=== PATIENT | male | born 1955 | race Caucasian/White ===

== ENCOUNTER 2017-01-27 17:05 | Inpatient (IN) | payer SELFPAY ==
[2017-01-27] VITALS (16 sets, daily range): BP systolic 122–162; BP diastolic 73–101
[~2017-01-27] VITALS: Ht 185.4 cm; Wt 113.4 kg
[2017-01-27] MEDS ORDERED: IV NORMAL SALINE 1000ML BAG 1,000 ML IV SCH (17:21)
--- NOTE | 2017-01-27 17:25 | PHYS DOC ---
Past Medical History Past Medical History: No Pertinent History Past Surgical History: No Surgical History Additional Information: 0.5 TO 1 PPD Alcohol Use: Occasionally Drug Use: None Adult General Chief Complaint Chief Complaint: CHEST PAIN HPI HPI Patient is a 61 year old male who presents with complaint of chest pain that started approximate one hour prior to arrival. Patient states that he was working on drywall when symptoms started. Patient denies any previous history of similar symptoms. Patient states that he started getting short of breath, nauseous, and diaphoretic with onset of symptoms. Patient states that the pain feels dull and achy. Patient states it radiates into his back in the left side of his jaw. Patient also had associated numbness in his left arm. Patient denies any known past medical history and does not currently follow with a primary physician. The patient does have family history of myocardial infarction , stating his brother 2 years ago of a heart attack. Patient rates pain currently as 2 out of 10. She has not taken any medications to help with symptoms since onset. Review of Systems Review of Systems Constitutional: Diaphoresis, Denies fever or chills [] Eyes: Denies change in visual acuity, redness, or eye pain [] HENT: Denies nasal congestion or sore throat [] Respiratory: Denies cough or shortness of breath [] Cardiovascular: Chest pain, denies edema [] GI: Denies abdominal pain, nausea, vomiting, bloody stools or diarrhea [] : Denies dysuria or hematuria [] Musculoskeletal: Denies back pain or joint pain [] Integument: Denies rash or skin lesions [] Neurologic: Denies headache, focal weakness or sensory changes [] Current Medications Current Medications Current Medications Medications (Trade) Dose Ordered Sig/[facility] Start Time Stop Time Status Last Admin Dose Admin Aspirin (Children'S Aspirin) 324 mg 1X ONCE 01/27/17 17:30 01/27/17 17:31 DC 01/27/17 17:29 324 MG Bivalirudin (Angiomax) 250 mg STK-MED ONCE 01/27/17 17:57 01/27/17 17:58 DC Fentanyl Citrate (Fentanyl 2ml Vial) 100 mcg STK-MED ONCE 01/27/17 17:56 01/27/17 17:57 DC Fentanyl Citrate 50 mcg 50 mcg PRN Q2HR PRN 01/27/17 17:30 01/28/17 17:29 Heparin Sodium (Porcine) 4000 unit 4,000 unit 1X ONCE 01/27/17 17:30 01/27/17 17:31 DC 01/27/17 17:30 4,000 UNIT Heparin Sodium/ Sodium Chloride 500 ml @ As Directed STK-MED ONCE 01/27/17 17:41 01/27/17 17:42 DC Iohexol (Omnipaque 300 Mg/ml) 100 ml STK-MED ONCE 01/27/17 17:42 01/27/17 17:43 DC Lidocaine HCl 20 ml STK-MED ONCE 01/27/17 17:41 01/27/17 17:42 DC Midazolam HCl (Versed) 2 mg STK-MED ONCE 01/27/17 17:56 01/27/17 17:57 DC Ondansetron HCl (Zofran) 4 mg PRN Q8HRS PRN 01/27/17 17:30 01/28/17 17:29 Sodium Chloride (Iv Sodium Chloride 0.9% 1000ml Bag) 1,000 ml @ 1,000 mls/hr Q1H 01/27/17 17:21 01/27/17 18:20 01/27/17 17:31 1,000 MLS/HR Allergies Allergies Allergies Coded Allergies Type Severity Reaction Last Updated Verified Penicillins Allergy Unknown 01/27/17 Yes Physical Exam Physical Exam Constitutional: Alert, afebrile, diaphoretic, appears acutely ill. [] HENT: Normocephalic, atraumatic, bilateral external ears normal, oropharynx moist, no oral exudates, nose normal. [] Eyes: PERRLA, EOMI, conjunctiva normal, no discharge. [] Neck: Normal range of motion, no tenderness, supple, no stridor. [] Cardiovascular:Heart rate regular rhythm, no murmur [] Lungs & Thorax: Bilateral breath sounds clear to auscultation [] Abdomen: Bowel sounds normal, soft, no tenderness, no masses, no pulsatile masses. [] Skin: Pale, diaphoretic, no erythema, no rash. [] Back: No tenderness, no CVA tenderness. [] Extremities: No tenderness, no cyanosis, no clubbing, ROM intact, no edema. [] Neurologic: Alert and oriented X 3, normal motor function, normal sensory function, no focal deficits noted. [] Current Patient Data Vital Signs Vital Signs Date Time Temp Pulse Resp B/P Pulse Ox O2 Delivery O2 Flow Rate FiO2 01/27/17 17:30 92 19 124/82 94 Room Air Lab Values Laboratory Tests Test 01/27/17 17:18 01/27/17 17:24 01/27/17 17:30 White Blood Count 18.1x10^3/uL (4.0-11.0) H Red Blood Count 5.15x10^6/uL (4.30-5.70) Hemoglobin 16.0g/dL (13.0-17.5) Hematocrit 49.4% (39.0-53.0) Mean Corpuscular Volume 96fL (79-100) Mean Corpuscular Hemoglobin 31pg (25-35) Mean Corpuscular Hemoglobin Concent 32g/dL (31-37) Red Cell Distribution Width 14.5% (11.5-14.5) Platelet Count 299x10^3/uL (140-400) Neutrophils (%) (Auto) 67% (31-73) Lymphocytes (%) (Auto) 21% (24-48) L Monocytes (%) (Auto) 10% (0-9) H Eosinophils (%) (Auto) 1% (0-3) Basophils (%) (Auto) 1% (0-3) Neutrophils # (Auto) 12.1x10^3uL (1.8-7.7) H Lymphocytes # (Auto) 3.9x10^3/uL (1.0-4.8) Monocytes # (Auto) 1.8x10^3/uL (0.0-1.1) H Eosinophils # (Auto) 0.2x10^3/uL (0.0-0.7) Basophils # (Auto) 0.1x10^3/uL (0.0-0.2) Sodium Level 145mmol/L (136-145) Potassium Level 4.2mmol/L (3.5-5.1) Chloride Level 107mmol/L (98-107) Carbon Dioxide Level 25mmol/L (21-32) Anion Gap 13 (6-14) 20mmol/L (6-14) H Blood Urea Nitrogen 26mg/dL (8-26) Creatinine 1.5mg/dL (0.7-1.3) H Estimated GFR (Cockcroft-Gault) 47.6 Glucose Level 143mg/dL (70-99) H 138mg/dL (70-99) H Calcium Level 9.6mg/dL (8.5-10.1) Magnesium Level Pending Total Bilirubin Pending Direct Bilirubin Pending Aspartate Amino Transferase (AST) Pending Alanine Aminotransferase (ALT) Pending Alkaline Phosphatase Pending Total Protein Pending Albumin Pending POC Troponin I 0.00ng/ml (<0.08) POC Hemoglobin 17.0g/dL (14-18) POC Hematocrit 50% (37-52) POC Sodium 143mmol/L (135-145) POC Potassium 4.1mmol/L (3.5-5.0) POC Chloride 106mmol/L (98-110) POC Total CO2 21mmol/L (23-32) L POC Blood Urea Nitrogen 27mg/dL (8-26) H POC Creatinine 1.4mg/dL (0.5-1.4) POC Ionized Calcium (Kerwin) 1.13mmol/L (1.13-1.32) Laboratory Tests 01/27/17 17:18 Laboratory Tests 01/27/17 17:18 01/27/17 17:30 EKG EKG Interpreted by me: Heart rate 79, sinus rhythm, normal intervals, leftward axis , ST elevations in the inferior leads, lateral leads, and in V4 through V6 with reciprocal depressions in V1 through V3 consistent with acute myocardial infarction. [] Radiology/Procedures Radiology/Procedures One view AP chest x-ray interpreted by me: No infiltrate, no effusions, normal cardiac silhouette [] Course & Med Decision Making Course & Med Decision Making Pertinent Labs and Imaging studies reviewed. (See chart for details) Patient's EKG showed evidence of acute STEMI. At 1718 code STEMI was paged out to the glassware maker and cardiac catheterization team. The patient was given 324 mg of oral aspirin and 4000 units of IV heparin. I spoke with Dr. Sarah at 1725. He agreed to come emergently to the emergency department to evaluate the patient for likely transfer to cardiac catheterization lab for acute PCAI. Spoke with patient and patient's family regarding plan of care and they're in agreement at this time. Patient was transferred in critical but stable condition to the cardiac catheterization lab. Patient met of to Dr. Douglass. Ck Disclaimer Ck Disclaimer This electronic medical record was generated, in whole or in part, using a voice recognition dictation system. Departure Departure Impression: Primary Impression: STEMI (ST elevation myocardial infarction) Disposition: ADMITTED INPATIENT Admitting Physician: Diana Douglass Condition: CRITICAL Problem Qualifiers Primary Impression: STEMI (ST elevation myocardial infarction) Involved coronary artery: unspecified coronary artery Qualified Code: I21.3 - ST elevation (STEMI) myocardial infarction of unspecified site KAYLIN RUSSELL MD Jan 27, 2017 17:25
[2017-01-27] MEDS ORDERED: FENTANYL PF 100 MCG/2 ML VIAL. IV PRN ×2 (17:30)
[2017-01-27] MEDS ORDERED: HEPARIN for IV BOLUS 10,000 UNIT/10 ML VIAL. IV ONE (17:30)
[2017-01-27] MEDS ORDERED: ASPIRIN 81 MG TAB.CHEW PO ONE (17:30)
[2017-01-27] MEDS ORDERED: ONDANSETRON PF 4 MG/2 ML VIAL. IV PRN (17:30)
[2017-01-27 17:33] LABS: POTASSIUM ISTAT 4.1 mmol/L (3.5-5.0)
--- NOTE | 2017-01-27 17:34 | EKG ---
[facility] [address] [place] [address] Test Date: 2017-01-27 Test Time: 17:15:09 Pat Name: ROSIE GLYNN Department: Room: Gender: M Construction Representative: : 1955 Requested By: KAYLIN RUSSELL Order Number: [id number] Reading MD: Measurements Intervals Addison Rate: 79 P: 39 CA: 156 QRS: -3 QRSD: 92 T: 52 QT: 346 QTc: 402 Interpretive Statements SINUS RHYTHM LEFTWARD AXIS ST & T ABNORMALITY, CONSIDER RECENT ANTEROLATERAL MYOCARDIAL OR PERICARDIAL DAMAGE ST-T ELEVATION, CONSIDER ACUTE INFERIOR INFARCT RI6.01 Unconfirmed report No previous ECG available for comparison
[2017-01-27] MEDS ORDERED: LIDOCAINE 2% 20 ML VIAL. ONE (17:41)
[2017-01-27] MEDS ORDERED: IOHEXOL 300 MG/ML 100ML VIAL. ONE (17:42)
[2017-01-27 17:45] LABS: BASO # 0.1 x10^3/uL (0.0-0.2); BASO % 1 % (0-3); EOS % 1 % (0-3); HEMATOCRIT 49.4 % (39.0-53.0); LYMPH # 3.9 x10^3/uL (1.0-4.8); LYMPH % 21 % (24-48); MEAN CORPUSCULAR HEMOGLOBIN 31 pg (25-35); MEAN CORPUSCULAR HGB CONC 32 g/dL (31-37); MEAN CORPUSCULAR VOLUME 96 fL (79-100); MONO % 10 % (0-9); NEUT % 67 % (31-73); PLATELET COUNT 299 x10^3/uL (140-400); RED BLOOD COUNT 5.15 x10^6/uL (4.30-5.70); RED CELL DISTRIBUTION WIDTH 14.5 % (11.5-14.5); WHITE BLOOD COUNT 18.1 x10^3/uL (4.0-11.0)
[2017-01-27] MEDS ORDERED: FENTANYL PF 100 MCG/2 ML VIAL. ONE (17:56)
[2017-01-27] MEDS ORDERED: MIDAZOLAM HCL 2 MG/2 ML VIAL. ONE (17:56)
[2017-01-27 17:57] LABS: CALCIUM 9.6 mg/dL (8.5-10.1); CREATININE 1.5 mg/dL (0.7-1.3); GFR 47.6; POTASSIUM 4.2 mmol/L (3.5-5.1)
[2017-01-27] MEDS ORDERED: BIVALIRUDIN 250 MG VIAL IV ONE ×2 (17:57→18:30)
[2017-01-27 18:02] LABS: ALBUMIN 3.7 g/dL (3.4-5.0); DIRECT BILIRUBIN 0.1 mg/dL (0.0-0.2); MAGNESIUM 2.1 mg/dL (1.8-2.4); TOTAL BILIRUBIN 0.3 mg/dL (0.2-1.0); TOTAL PROTEIN 7.9 g/dL (6.4-8.2)
[2017-01-27 18:10] LABS: CKMB INDEX 1.8 % (0-4); CKMB MASS 1.7 ng/mL (0.0-3.6)
[2017-01-27] MEDS ORDERED: CLOPIDOGREL BISULFATE 75 MG TABLET ONE (18:14)
[2017-01-27] MEDS ORDERED: IOHEXOL 300 MG/ML 100ML VIAL. IART ONE (18:15)
[2017-01-27] MEDS ORDERED: LIDOCAINE 2% 20 ML VIAL. IJ ONE (18:15)
[2017-01-27] MEDS ORDERED: FENTANYL PF 100 MCG/2 ML VIAL. IV ONE (18:15)
[2017-01-27] MEDS ORDERED: MIDAZOLAM HCL 2 MG/2 ML VIAL. IV ONE (18:15)
[2017-01-27] MEDS ORDERED: CLOPIDOGREL BISULFATE 75 MG TABLET PO ONE (18:15)
--- NOTE | 2017-01-27 18:34 | PDOC ---
MODERATE SEDATION ASSESSMENT RISKS/ALTERNATIVES Risks/Alternatives Risks and alternatives of this type of sedation and procedure discussed with: RISK/ALTERNATIVES: Patient H & P ON CHART H & P H & P on chart and reviewed for co-morbid conditions and appropriate labs. H&P ON CHART: Yes STATUS PREG STATUS ASSESSED: N/A MEDS/ALLERGIES REVIEWED Meds/Allergies Reviewed Medications and Allergies including time and route of recently administered narcotics and sedatives. MEDS/ALLERGIES REVIEWED: Yes ASA RATING ASA RATING: II AIRWAY ASSESSMENT Airway Assessment Airway patency, oral function limitations, presence of caps, crowns, dentures, partials, and ability to extend neck assessed. AIRWAY ASSESSMENT: Yes MALLAMPATI SCORE MALLAMPATI SCORE: II PRE-SEDATION ASSESSMENT PRE-SEDATION ASSESSMENT: Yes NIKITA MARQUEZ MD Jan 27, 2017 18:34
--- NOTE | 2017-01-27 18:41 | PDOC2 ---
CONSULT Date of Consult Date of Consult DATE: 01/27/17 TIME: 18:41 Reason for Consult Reason for Consult: Acute myocardial infarction Referring Physician Referring Physician: Dr. Pena Identification/Chief Complaint Chief Complaint Chest pain Source Source: Chart review, Patient History of Present Illness Reason for Visit: 61 y/o male without any known previous cardiac history presented with retrosternal chest pressure associated with diaphoresis started one all prior to presentation. He also had mild dyspnea but denied any orthopnea/PND, palpitations or syncope. Past Medical History Cardiovascular: No pertinent hx Past Surgical History Past Surgical History: No pertinent history Family History Family History Positive for premature coronary disease Social History Social History Patient smokes half to one pack cigarettes daily but denied any drug abuse Current Problem List Problem List Problems Medical Problems: (1) Acute DC Status: Acute (2) STEMI (ST elevation myocardial infarction) Status: Acute Current Medications Current Medications Current Medications Aspirin (Children'S Aspirin) 324 mg 1X ONCE PO Last administered on 01/27/17 17:29; Start 01/27/17 at 17:30; Stop 01/27/17 at 17:31; Status DC Heparin Sodium (Porcine) 4,000 unit 1X ONCE IV Last administered on 01/27/17 17:30; Start 01/27/17 at 17:30; Stop 01/27/17 at 17:31; Status DC Fentanyl Citrate 50 mcg 50 mcg PRN Q15MIN PRN IV PAIN GREATER THAN 3/10; Start 01/27/17 at 17:30; Stop 01/28/17 at 17:29 Sodium Chloride (Iv Sodium Chloride 0.9% 1000ml Bag) 1,000 ml @ 1,000 mls/hr Q1H IV Last administered on 01/27/17 17:31; Start 01/27/17 at 17:21; Stop at 18:20; Status DC Ondansetron HCl (Zofran) 4 mg PRN Q8HRS PRN IV NAUSEA/VOMITING; Start 01/27/17 at 17:30; Stop 01/28/17 at 17:29 Fentanyl Citrate 50 mcg 50 mcg PRN Q2HR PRN IV PAIN; Start 01/27/17 at 17:30; Stop 01/28/17 at 17:29 Heparin Sodium/ Sodium Chloride 500 ml @ As Directed STK-MED ONCE .ROUTE ; Start 01/27/17 at 17:41; Stop 01/27/17 at 17:42; Status DC Lidocaine HCl 20 ml STK-MED ONCE .ROUTE ; Start 01/27/17 at 17:41; Stop 01/27/17 at 17:42; Status DC Iohexol (Omnipaque 300 Mg/ml) 100 ml STK-MED ONCE .ROUTE ; Start 01/27/17 at 17: 42; Stop 01/27/17 at 17:43; Status DC Fentanyl Citrate (Fentanyl 2ml Vial) 100 mcg STK-MED ONCE .ROUTE ; Start at 17:56; Stop 01/27/17 at 17:57; Status DC Midazolam HCl (Versed) 2 mg STK-MED ONCE .ROUTE ; Start 01/27/17 at 17:56; Stop 01/27/17 at 17:57; Status DC Bivalirudin (Angiomax) 250 mg STK-MED ONCE IV ; Start 01/27/17 at 17:57; Stop 01/27/17 at 17:58; Status DC Heparin Sodium/ Sodium Chloride 1,000 unit 1X ONCE IART Last administered on 18:29; Start 01/27/17 at 18:15; Stop 01/27/17 at 18:18; Status DC Midazolam HCl (Versed) 2 mg 1X ONCE IV Last administered on 01/27/17 18:28; Start 01/27/17 at 18:15; Stop 01/27/17 at 18:18; Status DC Fentanyl Citrate (Fentanyl 2ml Vial) 100 mcg 1X ONCE IV Last administered on 18:28; Start 01/27/17 at 18:15; Stop 01/27/17 at 18:18; Status DC Iohexol (Omnipaque 300 Mg/ml) 100 ml 1X ONCE IART Last administered on 18:29; Start 01/27/17 at 18:15; Stop 01/27/17 at 18:18; Status DC Lidocaine HCl 20 ml 1X ONCE IJ Last administered on 01/27/17 18:27; Start 01/27 at 18:15; Stop 01/27/17 at 18:18; Status DC Clopidogrel Bisulfate (Plavix) 75 mg STK-MED ONCE .ROUTE ; Start 01/27/17 at 18: 14; Stop 01/27/17 at 18:15; Status DC Clopidogrel Bisulfate (Plavix) 600 mg 1X ONCE PO Last administered on t 18:27; Start 01/27/17 at 18:15; Stop 01/27/17 at 18:18; Status DC Bivalirudin (Angiomax) 250 mg 1X ONCE IV ; Start 01/27/17 at 18:30; Stop at 18:31; Status DC Allergies Allergies: Coded Allergies: Penicillins (Verified Allergy, Unknown, 01/27/17) ROS PSYCHOLOGICAL ROS: No: Hallucinations Eyes: No Loss of vision HEENT: No: Epistaxis Respiratory: YES: Shortness of breath Cardiovascular: yes Chest Pain Gastrointestinal: No Diarrhea, No Vomiting Genitourinary: No Hematuria Neurological: No Memory Loss, No Seizures Skin: No Rash Physical Exam General: Alert, Oriented X3 HEENT: Atraumatic, PERRLA Lungs: Clear to auscultation Heart: Regular rate Abdomen: Soft Extremities: No edema Psych/Mental Status: Mood NL Vitals VITALS Vital Signs Date Time Temp Pulse Resp B/P Pulse Ox O2 Delivery O2 Flow Rate FiO2 01/27/17 18:28 16 100 Nasal Cannula 2.0 01/27/17 17:40 92 134/88 Labs Labs Laboratory Tests Test 01/27/17 17:18 01/27/17 17:24 01/27/17 17:30 White Blood Count 18.1x10^3/uL (4.0-11.0) Red Blood Count 5.15x10^6/uL (4.30-5.70) Hemoglobin 16.0g/dL (13.0-17.5) Hematocrit 49.4% (39.0-53.0) Mean Corpuscular Volume 96fL (79-100) Mean Corpuscular Hemoglobin 31pg (25-35) Mean Corpuscular Hemoglobin Concent 32g/dL (31-37) Red Cell Distribution Width 14.5% (11.5-14.5) Platelet Count 299x10^3/uL (140-400) Neutrophils (%) (Auto) 67% (31-73) Lymphocytes (%) (Auto) 21% (24-48) Monocytes (%) (Auto) 10% (0-9) Eosinophils (%) (Auto) 1% (0-3) Basophils (%) (Auto) 1% (0-3) Neutrophils # (Auto) 12.1x10^3uL (1.8-7.7) Lymphocytes # (Auto) 3.9x10^3/uL (1.0-4.8) Monocytes # (Auto) 1.8x10^3/uL (0.0-1.1) Eosinophils # (Auto) 0.2x10^3/uL (0.0-0.7) Basophils # (Auto) 0.1x10^3/uL (0.0-0.2) Sodium Level 145mmol/L (136-145) Potassium Level 4.2mmol/L (3.5-5.1) Chloride Level 107mmol/L (98-107) Carbon Dioxide Level 25mmol/L (21-32) Anion Gap 13 (6-14) 20mmol/L (6-14) Blood Urea Nitrogen 26mg/dL (8-26) Creatinine 1.5mg/dL (0.7-1.3) Estimated GFR (Cockcroft-Gault) 47.6 Glucose Level 143mg/dL (70-99) 138mg/dL (70-99) Calcium Level 9.6mg/dL (8.5-10.1) Magnesium Level 2.1mg/dL (1.8-2.4) Total Bilirubin 0.3mg/dL (0.2-1.0) Direct Bilirubin 0.1mg/dL (0.0-0.2) Aspartate Amino Transf (AST/SGOT) 22U/L (15-37) Alanine Aminotransferase (ALT/SGPT) 27U/L (16-63) Alkaline Phosphatase 101U/L (46-116) Creatine Kinase 94U/L (39-308) Creatine Kinase MB (Mass) 1.7ng/mL (0.0-3.6) Creatine Kinase MB Relative Index 1.8% (0-4) Troponin I Quantitative < 0.017ng/mL (0.000-0.055) WR-Stn-D-Type Natriuretic Peptide 50pg/mL (0-124) Total Protein 7.9g/dL (6.4-8.2) Albumin 3.7g/dL (3.4-5.0) Bedside Troponin I 0.00ng/ml (<0.08) Bedside Hemoglobin 17.0g/dL (14-18) Bedside Hematocrit 50% (37-52) Bedside Sodium 143mmol/L (135-145) Bedside Potassium 4.1mmol/L (3.5-5.0) Bedside Chloride 106mmol/L (98-110) Bedside Total CO2 21mmol/L (23-32) Bedside Blood Urea Nitrogen 27mg/dL (8-26) Bedside Creatinine 1.4mg/dL (0.5-1.4) Bedside Ionized Calcium (Kerwin) 1.13mmol/L (1.13-1.32) Laboratory Tests Test 01/27/17 17:18 01/27/17 17:24 01/27/17 17:30 White Blood Count 18.1x10^3/uL (4.0-11.0) Red Blood Count 5.15x10^6/uL (4.30-5.70) Hemoglobin 16.0g/dL (13.0-17.5) Hematocrit 49.4% (39.0-53.0) Mean Corpuscular Volume 96fL (79-100) Mean Corpuscular Hemoglobin 31pg (25-35) Mean Corpuscular Hemoglobin Concent 32g/dL (31-37) Red Cell Distribution Width 14.5% (11.5-14.5) Platelet Count 299x10^3/uL (140-400) Neutrophils (%) (Auto) 67% (31-73) Lymphocytes (%) (Auto) 21% (24-48) Monocytes (%) (Auto) 10% (0-9) Eosinophils (%) (Auto) 1% (0-3) Basophils (%) (Auto) 1% (0-3) Neutrophils # (Auto) 12.1x10^3uL (1.8-7.7) Lymphocytes # (Auto) 3.9x10^3/uL (1.0-4.8) Monocytes # (Auto) 1.8x10^3/uL (0.0-1.1) Eosinophils # (Auto) 0.2x10^3/uL (0.0-0.7) Basophils # (Auto) 0.1x10^3/uL (0.0-0.2) Sodium Level 145mmol/L (136-145) Potassium Level 4.2mmol/L (3.5-5.1) Chloride Level 107mmol/L (98-107) Carbon Dioxide Level 25mmol/L (21-32) Anion Gap 13 (6-14) 20mmol/L (6-14) Blood Urea Nitrogen 26mg/dL (8-26) Creatinine 1.5mg/dL (0.7-1.3) Estimated GFR (Cockcroft-Gault) 47.6 Glucose Level 143mg/dL (70-99) 138mg/dL (70-99) Calcium Level 9.6mg/dL (8.5-10.1) Magnesium Level 2.1mg/dL (1.8-2.4) Total Bilirubin 0.3mg/dL (0.2-1.0) Direct Bilirubin 0.1mg/dL (0.0-0.2) Aspartate Amino Transf (AST/SGOT) 22U/L (15-37) Alanine Aminotransferase (ALT/SGPT) 27U/L (16-63) Alkaline Phosphatase 101U/L (46-116) Creatine Kinase 94U/L (39-308) Creatine Kinase MB (Mass) 1.7ng/mL (0.0-3.6) Creatine Kinase MB Relative Index 1.8% (0-4) Troponin I Quantitative < 0.017ng/mL (0.000-0.055) BD-Nhc-B-Type Natriuretic Peptide 50pg/mL (0-124) Total Protein 7.9g/dL (6.4-8.2) Albumin 3.7g/dL (3.4-5.0) Bedside Troponin I 0.00ng/ml (<0.08) Bedside Hemoglobin 17.0g/dL (14-18) Bedside Hematocrit 50% (37-52) Bedside Sodium 143mmol/L (135-145) Bedside Potassium 4.1mmol/L (3.5-5.0) Bedside Chloride 106mmol/L (98-110) Bedside Total CO2 21mmol/L (23-32) Bedside Blood Urea Nitrogen 27mg/dL (8-26) Bedside Creatinine 1.4mg/dL (0.5-1.4) Bedside Ionized Calcium (Kerwin) 1.13mmol/L (1.13-1.32) Assessment/Plan Assessment/Plan Acute inferolateral wall ST elevation myocardial infarction based on clinical presentation and EKG findings: Patient has ongoing chest pain. Start aspirin, heparin and proceed with emergent cardiac catheterization and possible primary PCI/stent placement. Risks and benefits were explained. Start statins and beta blockers after the procedure. Thank you for the consultation. NIKITA MARQUEZ MD Jan 27, 2017 18:41
[2017-01-27] MEDS ORDERED: ACETAMINOPHEN 325 MG TABLET. PO PRN (18:45)
[2017-01-27] MEDS ORDERED: NITROGLYCERIN SUBLINGUAL 0.4 MG BOTTLE OF 25. SL PRN (18:45)
--- NOTE | 2017-01-27 18:55 | CARD ---
APPROVED REPORT Procedure(s) performed: 1. Left heart catheterization, selective coronary angiography and left ventr iculography 2. Successful PCI/stent placement to the left circumflex and right coronary arteries INDICATION The indication(s) include : Acute inferolateral wall ST elevation myocardial infarction. PROCEDURE NARRATIVE After explaining the risks, benefits and alternative options, informed consent was obtained from crystal ent. Patient reported to the cardiac County Agent and his right groin was prepped and draped in the usual fashion. 20 mL of 2% lidocaine was infiltrated into the skin and subcutaneous tissues for local anes thesia. Arterial access was obtained in the right common femoral artery and 6 Sudanese sheath was inser mikey. 6 Sudanese JL4 diagnostic and 6 Sudanese JR4 guide catheters were used to perform selective angiogra phy of the left and right coronary arteries. 6 Sudanese pigtail catheter was used to perform left ventr iculography at the end of procedure. The following findings were noted. FINDINGS 1. Hemodynamics: Left ventricular end-diastolic pressure 24 mm moderately. No pullback gradient acr oss the aortic valve. 2. Left ventriculography: [id number]-sapxoxil left ventricle systolic dysfunction with ejection fracti on estimated at 40%. No significant mitral regurgitation seen. 3. Coronary angiography: a. The left main coronary artery arose from the left sinus of Valsalva, gave rise to the left anteri or descending and left circumflex arteries and did not show any significant stenosis. b. The left anterior descending artery did not show any significant stenosis. c. The left circumflex artery was a large caliber vessel that showed 95% stenosis with thrombus in t he midsegment. d. The right coronary artery arose from the right sinus of Valsalva that showed 90% stenosis in the proximal segment. The posterior descending and posterolateral branches showed moderate diffuse diseas e. INTERVENTION The left main coronary artery was engaged with a 6 Sudanese XB 3.5 guide catheter and the stenosis in t he midsegment of the left circumflex artery was crossed with a 0.014 inch Bumpr guidewire. T his was predilated with a 3.0 x 15 mm trek balloon following which this was successfully treated with a 4.0 x 23 mm MultiLink vision bare metal stent. Subsequently, the right coronary artery was engaged with a 6 Sudanese JR4 guide catheter, the stenosis in the proximal segment crossed with the same guide wire and successfully treated with a 3.5 x 15 mm vision bare-metal stent. Follow-up angiography showe d resolution of both these stenoses to 0% with PRO-3 distal flow. Patient tolerated the procedure we ll. Hemostasis was achieved using Perclose suture closure device. There were no immediate complicatio ns. Conclusion 1. Severe two-vessel coronary disease 2. Successful PCI/stent placement to the left circumflex and right coronary arteries 3. Mild to moderate left ventricle systolic dysfunction with ejection fraction estimated at 40% Recommendations 1. Aspirin 325 mg daily 2. Plavix 75 mg daily for preferably one year 3. Cardiovascular risk factor modification
[2017-01-27] MEDS ORDERED: hydrALAZINE 20 MG/ML VIAL. IVP PRN (19:15)
--- NOTE | 2017-01-27 19:21 | PDOC1 ---
History and Physical Date of Admission Date of Admission 01/27/17 Identification/Chief Complaint Chief Complaint chest pain Problems: Source Source: Chart review, Patient History of Present Illness History of Present Illness Patient is a 61 year old male who presents with complaint of chest pain that started approximate one hour prior to arrival. pt has no PMH, only takes naproxen daily for left hip pain recently. Pt started to have substernal chest pain, heavy, no radiation, but has some right jaw pain, with finger numbness, diaphoresis, nausea. Pt has + FMH with brother of [facility]. Pt was found STEMI in ER, got cath stat, 2 stents in. cannot see EKG in computer. Past Medical History Cardiovascular: No pertinent hx Past Surgical History Past Surgical History: No pertinent history Family History Family History: Heart Disease Social History Smoke: 1 pack per day ALCOHOL: social Drugs: None Current Problem List Problem List Problems Medical Problems: (1) Acute [facility] Status: Acute (2) STEMI (ST elevation myocardial infarction) Status: Acute Current Medications Current Medications Current Medications Medications (Trade) Dose Ordered Sig/Asher Start Time Stop Time Status Last Admin Dose Admin Acetaminophen (Tylenol) 650 mg PRN Q6HRS PRN 01/27/17 18:45 Aspirin (Children'S Aspirin) 324 mg 1X ONCE 01/27/17 17:30 01/27/17 17:31 DC 01/27/17 17:29 324 MG Aspirin (Ecotrin) 325 mg DAILYWBKFT 01/28/17 08:00 Atorvastatin Calcium (Lipitor) 40 mg QHS 01/27/17 21:00 Bivalirudin (Angiomax) 250 mg STK-MED ONCE 01/27/17 17:57 01/27/17 17:58 DC Bivalirudin 250 mg 250 mg 1X ONCE 01/27/17 18:30 01/27/17 18:31 DC 01/27/17 18:01 250 MG Clopidogrel Bisulfate (Plavix) 75 mg DAILYWBKFT 01/28/17 08:00 Fentanyl Citrate (Fentanyl 2ml Vial) 100 mcg 1X ONCE 01/27/17 18:15 01/27/17 18:18 DC 01/27/17 18:28 75 MCG Fentanyl Citrate 50 mcg 50 mcg PRN Q15MIN PRN 01/27/17 17:30 01/28/17 17:29 Heparin Sodium (Porcine) 4,000 unit 1X ONCE 01/27/17 17:30 01/27/17 17:31 DC 01/27/17 17:30 4,000 UNIT Heparin Sodium/ Sodium Chloride 1,000 unit 1X ONCE 01/27/17 18:15 01/27/17 18:18 DC 01/27/17 18:29 1,000 UNIT Iohexol (Omnipaque 300 Mg/ml) 100 ml 1X ONCE 01/27/17 18:15 01/27/17 18:18 DC 01/27/17 18:29 208 ML Lidocaine HCl 20 ml 1X ONCE 01/27/17 18:15 01/27/17 18:18 DC 01/27/17 18:27 20 ML Metoprolol Tartrate (Lopressor) 12.5 mg BID 01/27/17 21:00 Midazolam HCl (Versed) 2 mg 1X ONCE 01/27/17 18:15 01/27/17 18:18 DC 01/27/17 18:28 1.5 MG Nitroglycerin (Nitrostat) 0.4 mg PRN Q5MIN PRN 01/27/17 18:45 Ondansetron HCl (Zofran) 4 mg PRN Q8HRS PRN 01/27/17 17:30 01/28/17 17:29 Sodium Chloride (Iv Sodium Chloride 0.45%) 1,000 ml @ 100 mls/hr Q10H 01/27/17 18:37 Sodium Chloride (Iv Sodium Chloride 0.9% 1000ml Bag) 1,000 ml @ 1,000 mls/hr Q1H 01/27/17 17:21 01/27/17 18:20 DC 01/27/17 17:31 1,000 MLS/HR Allergies Allergies Allergies Coded Allergies Type Severity Reaction Last Updated Verified Penicillins Allergy Unknown 01/27/17 Yes ROS Review of System CONSTITUTIONAL: No fever or chills EYES: No recent changes SKIN: No rash or itching CARDIOVASCULAR: No chest pain, syncope, palpitations, or edema RESPIRATORY: No SOB or cough GASTROINTESTINAL: No nausea, vomiting or abdominal pain NEUROLOGICAL: No headaches or weakness ENDOCRINE: No cold or heat intolerance GENITOURINARY: No urgency or frequency of urination MUSCULOSKELETAL: No back pain or joint pain LYMPHATICS: No enlarged lymph nodes PSYCHIATRIC: No anxiety or depression Physical Exam Physical Exam GEN.: No apparent distress. Alert and oriented. HEENT: Head is normocephalic, atraumatic NECK: Supple. LUNGS: Clear to auscultation. HEART: RRR, S1, S2 present. Peripheral pulses intact ABDOMEN: Soft, nontender. Positive bowel sounds. EXTREMITIES: Without any cyanosis. NEUROLOGIC: Normal speech, normal tone PSYCHIATRIC: Normal affect, normal mood. SKIN: No ulcerations Vitals Vitals Vital Signs Date Time Temp Pulse Resp B/P Pulse Ox O2 Delivery O2 Flow Rate FiO2 01/27/17 18:29 96 18 100 Nasal Cannula 2.0 01/27/17 17:40 134/88 Labs Labs Laboratory Tests Test 01/27/17 17:18 01/27/17 17:24 01/27/17 17:30 White Blood Count 18.1x10^3/uL (4.0-11.0) Red Blood Count 5.15x10^6/uL (4.30-5.70) Hemoglobin 16.0g/dL (13.0-17.5) Hematocrit 49.4% (39.0-53.0) Mean Corpuscular Volume 96fL (79-100) Mean Corpuscular Hemoglobin 31pg (25-35) Mean Corpuscular Hemoglobin Concent 32g/dL (31-37) Red Cell Distribution Width 14.5% (11.5-14.5) Platelet Count 299x10^3/uL (140-400) Neutrophils (%) (Auto) 67% (31-73) Lymphocytes (%) (Auto) 21% (24-48) Monocytes (%) (Auto) 10% (0-9) Eosinophils (%) (Auto) 1% (0-3) Basophils (%) (Auto) 1% (0-3) Neutrophils # (Auto) 12.1x10^3uL (1.8-7.7) Lymphocytes # (Auto) 3.9x10^3/uL (1.0-4.8) Monocytes # (Auto) 1.8x10^3/uL (0.0-1.1) Eosinophils # (Auto) 0.2x10^3/uL (0.0-0.7) Basophils # (Auto) 0.1x10^3/uL (0.0-0.2) Sodium Level 145mmol/L (136-145) Potassium Level 4.2mmol/L (3.5-5.1) Chloride Level 107mmol/L (98-107) Carbon Dioxide Level 25mmol/L (21-32) Anion Gap 13 (6-14) 20mmol/L (6-14) Blood Urea Nitrogen 26mg/dL (8-26) Creatinine 1.5mg/dL (0.7-1.3) Estimated GFR (Cockcroft-Gault) 47.6 Glucose Level 143mg/dL (70-99) 138mg/dL (70-99) Calcium Level 9.6mg/dL (8.5-10.1) Magnesium Level 2.1mg/dL (1.8-2.4) Total Bilirubin 0.3mg/dL (0.2-1.0) Direct Bilirubin 0.1mg/dL (0.0-0.2) Aspartate Amino Transf (AST/SGOT) 22U/L (15-37) Alanine Aminotransferase (ALT/SGPT) 27U/L (16-63) Alkaline Phosphatase 101U/L (46-116) Creatine Kinase 94U/L (39-308) Creatine Kinase MB (Mass) 1.7ng/mL (0.0-3.6) Creatine Kinase MB Relative Index 1.8% (0-4) Troponin I Quantitative < 0.017ng/mL (0.000-0.055) SA-Yyi-P-Type Natriuretic Peptide 50pg/mL (0-124) Total Protein 7.9g/dL (6.4-8.2) Albumin 3.7g/dL (3.4-5.0) Bedside Troponin I 0.00ng/ml (<0.08) Bedside Hemoglobin 17.0g/dL (14-18) Bedside Hematocrit 50% (37-52) Bedside Sodium 143mmol/L (135-145) Bedside Potassium 4.1mmol/L (3.5-5.0) Bedside Chloride 106mmol/L (98-110) Bedside Total CO2 21mmol/L (23-32) Bedside Blood Urea Nitrogen 27mg/dL (8-26) Bedside Creatinine 1.4mg/dL (0.5-1.4) Bedside Ionized Calcium (Kerwin) 1.13mmol/L (1.13-1.32) Laboratory Tests Test 01/27/17 17:18 01/27/17 17:24 01/27/17 17:30 White Blood Count 18.1x10^3/uL (4.0-11.0) Red Blood Count 5.15x10^6/uL (4.30-5.70) Hemoglobin 16.0g/dL (13.0-17.5) Hematocrit 49.4% (39.0-53.0) Mean Corpuscular Volume 96fL (79-100) Mean Corpuscular Hemoglobin 31pg (25-35) Mean Corpuscular Hemoglobin Concent 32g/dL (31-37) Red Cell Distribution Width 14.5% (11.5-14.5) Platelet Count 299x10^3/uL (140-400) Neutrophils (%) (Auto) 67% (31-73) Lymphocytes (%) (Auto) 21% (24-48) Monocytes (%) (Auto) 10% (0-9) Eosinophils (%) (Auto) 1% (0-3) Basophils (%) (Auto) 1% (0-3) Neutrophils # (Auto) 12.1x10^3uL (1.8-7.7) Lymphocytes # (Auto) 3.9x10^3/uL (1.0-4.8) Monocytes # (Auto) 1.8x10^3/uL (0.0-1.1) Eosinophils # (Auto) 0.2x10^3/uL (0.0-0.7) Basophils # (Auto) 0.1x10^3/uL (0.0-0.2) Sodium Level 145mmol/L (136-145) Potassium Level 4.2mmol/L (3.5-5.1) Chloride Level 107mmol/L (98-107) Carbon Dioxide Level 25mmol/L (21-32) Anion Gap 13 (6-14) 20mmol/L (6-14) Blood Urea Nitrogen 26mg/dL (8-26) Creatinine 1.5mg/dL (0.7-1.3) Estimated GFR (Cockcroft-Gault) 47.6 Glucose Level 143mg/dL (70-99) 138mg/dL (70-99) Calcium Level 9.6mg/dL (8.5-10.1) Magnesium Level 2.1mg/dL (1.8-2.4) Total Bilirubin 0.3mg/dL (0.2-1.0) Direct Bilirubin 0.1mg/dL (0.0-0.2) Aspartate Amino Transf (AST/SGOT) 22U/L (15-37) Alanine Aminotransferase (ALT/SGPT) 27U/L (16-63) Alkaline Phosphatase 101U/L (46-116) Creatine Kinase 94U/L (39-308) Creatine Kinase MB (Mass) 1.7ng/mL (0.0-3.6) Creatine Kinase MB Relative Index 1.8% (0-4) Troponin I Quantitative < 0.017ng/mL (0.000-0.055) VD-Agp-Y-Type Natriuretic Peptide 50pg/mL (0-124) Total Protein 7.9g/dL (6.4-8.2) Albumin 3.7g/dL (3.4-5.0) Bedside Troponin I 0.00ng/ml (<0.08) Bedside Hemoglobin 17.0g/dL (14-18) Bedside Hematocrit 50% (37-52) Bedside Sodium 143mmol/L (135-145) Bedside Potassium 4.1mmol/L (3.5-5.0) Bedside Chloride 106mmol/L (98-110) Bedside Total CO2 21mmol/L (23-32) Bedside Blood Urea Nitrogen 27mg/dL (8-26) Bedside Creatinine 1.4mg/dL (0.5-1.4) Bedside Ionized Calcium (Kerwin) 1.13mmol/L (1.13-1.32) VTE Prophylaxis Ordered VTE Prophylaxis Devices: Yes VTE Pharmacological Prophylaxi: No Assessment/Plan Assessment/Plan 1. STEMI 2. HTN, new 3. taboccoism 4. SIRS wo infection, reactive to 1 plan: 1. post PCI 2. on asa, plavix, lipitor, metoprolol 3. labs tmr ivf as per card for now hydralazine prn for HTN DENI NEAL MD Jan 27, 2017 19:21
[2017-01-27] MEDS: IV 1/2 NORMAL SALINE 1,000 ML IV SCH (19:54)
[2017-01-27] MEDS: ATORVASTATIN CALCIUM 40 MG TABLET. PO SCH (21:03)
[2017-01-27] MEDS: METOPROLOL TART IMMED RELEASE 25 MG TABLET PO SCH (21:04)
[2017-01-28] VITALS (9 sets, daily range): BP systolic 102–132; BP diastolic 56–78
[2017-01-28] MEDS ORDERED: NAPR500T3 PO (00:04)
--- NOTE | 2017-01-28 03:22 | ACF ---
Admission Forms Criteria MYOCARDIAL INFARCTION Clinical Indications for Admission to Inpatient Care (Place 'X' for any and all applicable criteria): Admission is indicated for ANY ONE of the following (1)(2)(3)(4): [X]I. Acute ND [ ]II. Contraindications and/or Inappropriate clinical situations for Observational Care in patients with Myocardial Infarction, when ANY ONE of the following is required: [ ]a) Patient with High risk of cardiac embolism (e.g, patients with previous cardiac embolism, LVEF < 40%, age >75 and patients with prosthetic valve) 18 [ ]b) Patient with Moderate risk including DM patient, CAD and patient aged 65-75 18 [ ]c) Patient with any change in cardiac biomarker especially troponin should be managed as high risk in an inpatient setting 19 [ ]d) Physician judgement irrespective of ECG and other diagnostic findings 20 [ ]III.General contraindications and/or Inappropriate clinical situations for Observational Care in patients with Myocardial Infarction, when ANY ONE of the following is required: [ ]a) Prediction of prolongation of LOS based on ANY ONE of the following may be considered as a contraindication for observational care 2, 3, 4, 5, 6, 7, 8, 9, 10, 11 [ ]i) Age > 65 yrs. [ ]ii) Patient arriving by ambulance [ ]iii) Patient with high acuity [ ]iv) Patient requiring vital sign monitoring [ ]v) Patient on IV medication [ ]b) Systolic blood pressures 180mmHg 3,12 [ ]c) Patient with altered mental status including delirium and other alteration of consciousness, (3) [ ]d) Patient whose discharge disposition will be to a [place] [facility] home or rehabilitation home should not be managed in Emergency Department Observation Unit. CMS rule requires 3 days hospital stay before such placement. 3,13 [ ]e) Patient with failure to thrive due to broad array of etiologies 3 ,16,17 [ ]f) Inability to ambulate 3,14 Extended stay beyond goal length of stay may be needed for (1)(18)(20)(24)(25): [ ]a) Hemodynamic instability, persisting symptoms after intensive medical management, or recurring severe, prolonged symptoms [ ]b) Intravascular procedural complications such as acute vessel closure, stent thrombosis, stent malposition, or vessel dissection (26)(27)(28) [ ]c) Extravascular procedural complications such as retroperitoneal hematoma , pericardial effusion, or cardiac tamponade [ ]d) Entry site complications causing bleeding, hematoma or distal ischemia and requiring ongoing monitoring, surgical repair or surgical thrombectomy(29) [ ]e) Dangerous arrhythmia [ ]f) Complicated percutaneous coronary intervention (e.g., unsuccessful percutaneous coronary intervention or percutaneous coronary intervention of non- [place] vessel) [ ]g) Urgent or emergent surgery for complications of ND (e.g., ventricular rupture, valvular insufficiency) [ ]h) Surgical revascularization via coronary artery bypass graft [ ]i) Heart failure (e.g., pulmonary edema) [ ]j) Unstable pulmonary comorbidities, including COPD or pneumonia (31) [ ]k) Acute renal failure The original [employer] content created by [employer] has been revised. The portions of the content which have been revised are identified through the use of italic text or in bold, and [facility] has neither reviewed nor approved the modified material. All other unmodified content is copyright [facility] Please see references footnoted in the original [facility] edition 2016 Admission Criteria Met?: Yes JENNIFER FUENTES Jan 28, 2017 03:22
[2017-01-28 03:29] LABS: BASO # 0.1 x10^3/uL (0.0-0.2); BASO % 0 % (0-3); EOS % 1 % (0-3); HEMATOCRIT 43.2 % (39.0-53.0); HEMOGLOBIN 14.5 g/dL (13.0-17.5); LYMPH # 3.8 x10^3/uL (1.0-4.8); LYMPH % 25 % (24-48); MEAN CORPUSCULAR HEMOGLOBIN 31 pg (25-35); MEAN CORPUSCULAR HGB CONC 34 g/dL (31-37); MEAN CORPUSCULAR VOLUME 93 fL (79-100); MONO % 11 % (0-9); NEUT % 63 % (31-73); PLATELET COUNT 252 x10^3/uL (140-400); RED BLOOD COUNT 4.65 x10^6/uL (4.30-5.70); RED CELL DISTRIBUTION WIDTH 14.6 % (11.5-14.5); WHITE BLOOD COUNT 14.9 x10^3/uL (4.0-11.0)
[2017-01-28 03:40] LABS: CALCIUM 8.8 mg/dL (8.5-10.1); POTASSIUM 4.3 mmol/L (3.5-5.1)
[2017-01-28 03:45] LABS: CHOLESTEROL/HDL RATIO 6.1
[2017-01-28] MEDS: IV 1/2 NORMAL SALINE 1,000 ML IV SCH ×2 (04:37→14:37)
--- NOTE | 2017-01-28 08:08 | RAD ---
EXAM: Chest one view. HISTORY: Chest pain, palpitations. COMPARISON: 09/15/2006. FINDINGS: A frontal view of the chest is obtained. There are no confluent infiltrates. There is no pneumothorax or pleural effusion. The heart is not enlarged. IMPRESSION: 1. No confluent infiltrates.
[2017-01-28] MEDS: METOPROLOL TART IMMED RELEASE 25 MG TABLET PO SCH ×2 (08:36→20:58)
[2017-01-28] MEDS: CLOPIDOGREL BISULFATE 75 MG TABLET PO SCH (08:37)
[2017-01-28] MEDS: ASPIRIN ENTERIC COATED 325 MG TABLET.DR. PO SCH (08:37)
--- NOTE | 2017-01-28 11:11 | PDOC ---
SAGELARA STRAUSS Katrin INTERNET MARKETING CONSULTANT 01/28/17 1111: CARDIO Progress Notes Date and Time Date of Service 01/28/2017 Time of Evaluation 1107 Subjective Subjective: No Chest Pain, No shortness of breath, No Palpitations, No Dizziness Vitals Vitals Vital Signs Date Time Temp Pulse Resp B/P Pulse Ox O2 Delivery O2 Flow Rate FiO2 01/28/17 08:36 72 123/75 01/28/17 08:00 Nasal Cannula 2.0 01/28/17 07:00 98.1 18 96 98.1 Weight Weight [ ] Input and Output Intake and Output Intake and Output 01/28/17 07:00 Intake Total 1440 ml Output Total 1100 ml Balance 340 ml Intake Oral 240 ml Other 1200 ml Output Urine Total 1100 ml Laboratory Labs Laboratory Tests Test 01/27/17 17:18 01/27/17 17:24 01/27/17 17:30 01/28/17 02:50 White Blood Count 18.1x10^3/uL (4.0-11.0) 14.9x10^3/uL (4.0-11.0) Red Blood Count 5.15x10^6/uL (4.30-5.70) 4.65x10^6/uL (4.30-5.70) Hemoglobin 16.0g/dL (13.0-17.5) 14.5g/dL (13.0-17.5) Hematocrit 49.4% (39.0-53.0) 43.2% (39.0-53.0) Mean Corpuscular Volume 96fL (79-100) 93fL (79-100) Mean Corpuscular Hemoglobin 31pg (25-35) 31pg (25-35) Mean Corpuscular Hemoglobin Concent 32g/dL (31-37) 34g/dL (31-37) Red Cell Distribution Width 14.5% (11.5-14.5) 14.6% (11.5-14.5) Platelet Count 299x10^3/uL (140-400) 252x10^3/uL (140-400) Neutrophils (%) (Auto) 67% (31-73) 63% (31-73) Lymphocytes (%) (Auto) 21% (24-48) 25% (24-48) Monocytes (%) (Auto) 10% (0-9) 11% (0-9) Eosinophils (%) (Auto) 1% (0-3) 1% (0-3) Basophils (%) (Auto) 1% (0-3) 0% (0-3) Neutrophils # (Auto) 12.1x10^3uL (1.8-7.7) 9.4x10^3uL (1.8-7.7) Lymphocytes # (Auto) 3.9x10^3/uL (1.0-4.8) 3.8x10^3/uL (1.0-4.8) Monocytes # (Auto) 1.8x10^3/uL (0.0-1.1) 1.6x10^3/uL (0.0-1.1) Eosinophils # (Auto) 0.2x10^3/uL (0.0-0.7) 0.1x10^3/uL (0.0-0.7) Basophils # (Auto) 0.1x10^3/uL (0.0-0.2) 0.1x10^3/uL (0.0-0.2) Sodium Level 145mmol/L (136-145) 141mmol/L (136-145) Potassium Level 4.2mmol/L (3.5-5.1) 4.3mmol/L (3.5-5.1) Chloride Level 107mmol/L (98-107) 108mmol/L (98-107) Carbon Dioxide Level 25mmol/L (21-32) 23mmol/L (21-32) Anion Gap 13 (6-14) 20mmol/L (6-14) 10 (6-14) Blood Urea Nitrogen 26mg/dL (8-26) 22mg/dL (8-26) Creatinine 1.5mg/dL (0.7-1.3) 1.0mg/dL (0.7-1.3) Estimated GFR (Cockcroft-Gault) 47.6 76.0 Glucose Level 143mg/dL (70-99) 138mg/dL (70-99) 94mg/dL (70-99) Calcium Level 9.6mg/dL (8.5-10.1) 8.8mg/dL (8.5-10.1) Magnesium Level 2.1mg/dL (1.8-2.4) Total Bilirubin 0.3mg/dL (0.2-1.0) Direct Bilirubin 0.1mg/dL (0.0-0.2) Aspartate Amino Transf (AST/SGOT) 22U/L (15-37) Alanine Aminotransferase (ALT/SGPT) 27U/L (16-63) Alkaline Phosphatase 101U/L (46-116) Creatine Kinase 94U/L (39-308) Creatine Kinase MB (Mass) 1.7ng/mL (0.0-3.6) Creatine Kinase MB Relative Index 1.8% (0-4) Troponin I Quantitative < 0.017ng/mL (0.000-0.055) NL-Zqc-[id number]-Type Natriuretic Peptide 50pg/mL (0-124) Total Protein 7.9g/dL (6.4-8.2) Albumin 3.7g/dL (3.4-5.0) Bedside Troponin I 0.00ng/ml (<0.08) Bedside Hemoglobin 17.0g/dL (14-18) Bedside Hematocrit 50% (37-52) Bedside Sodium 143mmol/L (135-145) Bedside Potassium 4.1mmol/L (3.5-5.0) Bedside Chloride 106mmol/L (98-110) Bedside Total CO2 21mmol/L (23-32) Bedside Blood Urea Nitrogen 27mg/dL (8-26) Bedside Creatinine 1.4mg/dL (0.5-1.4) Bedside Ionized Calcium (Kerwin) 1.13mmol/L (1.13-1.32) Triglycerides Level 120mg/dL (0-150) Cholesterol Level 200mg/dL (0-200) LDL Cholesterol, Calculated 143mg/dL (0-100) VLDL Cholesterol, Calculated 24mg/dL (0-40) HDL Cholesterol 33mg/dL (40-60) Cholesterol/HDL Ratio 6.1 Thyroid Stimulating Hormone (TSH) 1.763uIU/mL (0.358-3.74) Physical Exam HEENT: Neck Supple W Full Motion Chest: Symmetric LUNGS: Clear to Auscultation Heart: S1S2, RRR, no murmurs, other (tele: SR) Abdomen: Soft N/T Extremities: 2+ Dorsalis Pedis, 2+ Posterior Tibial, No Edema, Other (right correctional captain with ecchymosis; no bruit auscultated @ site; site soft without erythema) Neurology: alert, oriented, follow commands Assessment Assessment 1. STEMI PCI/SULEIMAN to circumflex and RCA with DAPT for the next 12 months echo to re-evaluate LV function 2. HLD LDLs = 143 continue high dose statin therapy 3. HTN continue beta-blockers 4. tobacco abuse smoking cessation discussed NIKITA MARQUEZ MD 01/29/17 0941: CARDIO Progress Notes Assessment Assessment Patient seen and examined 01/28/17. Agree with FINISHED STOCK INSPECTOR's assessment and plan. s/p successful PCI/stent placement LCx and RCA in the setting of STEMI. Patient is currently chest pain-free and telemetry did not show any significant arrhythmias. 2-D echo showed LVEF 45-50%. Continue dual and outpatient therapy. Anticipate discharge home tomorrow. The importance of smoking cessation reemphasized. LARA GAYLE APRN Jan 28, 2017 11:11 NIKITA MARQUEZ MD Jan 29, 2017 09:41
--- NOTE | 2017-01-28 14:54 | PDOC ---
PROGRESS NOTES Chief Complaint Chief Complaint STEMI, s/p PCI/SULEIMAN to circumflex and RCA CV following lipids, not at goal htn tobaccoism obesity, BMI 33 History of Present Illness History of Present Illness feels well no pain reports some recent depression and lack of motivation, discussed at length, sister at bedside, offering support Vitals Vitals Vital Signs Date Time Temp Pulse Resp B/P Pulse Ox O2 Delivery O2 Flow Rate FiO2 01/28/17 11:00 97.9 68 18 109/57 95 Room Air 97.9 01/28/17 08:00 2.0 Physical Exam General: Alert, Oriented X3 Heart: Regular rate Abdomen: Soft, No tenderness Extremities: No clubbing, No edema Skin: No rashes Labs LABS Laboratory Tests Test 01/27/17 17:18 01/27/17 17:24 01/27/17 17:30 01/28/17 02:50 White Blood Count 18.1x10^3/uL (4.0-11.0) 14.9x10^3/uL (4.0-11.0) Red Blood Count 5.15x10^6/uL (4.30-5.70) 4.65x10^6/uL (4.30-5.70) Hemoglobin 16.0g/dL (13.0-17.5) 14.5g/dL (13.0-17.5) Hematocrit 49.4% (39.0-53.0) 43.2% (39.0-53.0) Mean Corpuscular Volume 96fL (79-100) 93fL (79-100) Mean Corpuscular Hemoglobin 31pg (25-35) 31pg (25-35) Mean Corpuscular Hemoglobin Concent 32g/dL (31-37) 34g/dL (31-37) Red Cell Distribution Width 14.5% (11.5-14.5) 14.6% (11.5-14.5) Platelet Count 299x10^3/uL (140-400) 252x10^3/uL (140-400) Neutrophils (%) (Auto) 67% (31-73) 63% (31-73) Lymphocytes (%) (Auto) 21% (24-48) 25% (24-48) Monocytes (%) (Auto) 10% (0-9) 11% (0-9) Eosinophils (%) (Auto) 1% (0-3) 1% (0-3) Basophils (%) (Auto) 1% (0-3) 0% (0-3) Neutrophils # (Auto) 12.1x10^3uL (1.8-7.7) 9.4x10^3uL (1.8-7.7) Lymphocytes # (Auto) 3.9x10^3/uL (1.0-4.8) 3.8x10^3/uL (1.0-4.8) Monocytes # (Auto) 1.8x10^3/uL (0.0-1.1) 1.6x10^3/uL (0.0-1.1) Eosinophils # (Auto) 0.2x10^3/uL (0.0-0.7) 0.1x10^3/uL (0.0-0.7) Basophils # (Auto) 0.1x10^3/uL (0.0-0.2) 0.1x10^3/uL (0.0-0.2) Sodium Level 145mmol/L (136-145) 141mmol/L (136-145) Potassium Level 4.2mmol/L (3.5-5.1) 4.3mmol/L (3.5-5.1) Chloride Level 107mmol/L (98-107) 108mmol/L (98-107) Carbon Dioxide Level 25mmol/L (21-32) 23mmol/L (21-32) Anion Gap 13 (6-14) 20mmol/L (6-14) 10 (6-14) Blood Urea Nitrogen 26mg/dL (8-26) 22mg/dL (8-26) Creatinine 1.5mg/dL (0.7-1.3) 1.0mg/dL (0.7-1.3) Estimated GFR (Cockcroft-Gault) 47.6 76.0 Glucose Level 143mg/dL (70-99) 138mg/dL (70-99) 94mg/dL (70-99) Calcium Level 9.6mg/dL (8.5-10.1) 8.8mg/dL (8.5-10.1) Magnesium Level 2.1mg/dL (1.8-2.4) Total Bilirubin 0.3mg/dL (0.2-1.0) Direct Bilirubin 0.1mg/dL (0.0-0.2) Aspartate Amino Transf (AST/SGOT) 22U/L (15-37) Alanine Aminotransferase (ALT/SGPT) 27U/L (16-63) Alkaline Phosphatase 101U/L (46-116) Creatine Kinase 94U/L (39-308) Creatine Kinase MB (Mass) 1.7ng/mL (0.0-3.6) Creatine Kinase MB Relative Index 1.8% (0-4) Troponin I Quantitative < 0.017ng/mL (0.000-0.055) ZY-Boe-K-Type Natriuretic Peptide 50pg/mL (0-124) Total Protein 7.9g/dL (6.4-8.2) Albumin 3.7g/dL (3.4-5.0) Bedside Troponin I 0.00ng/ml (<0.08) Bedside Hemoglobin 17.0g/dL (14-18) Bedside Hematocrit 50% (37-52) Bedside Sodium 143mmol/L (135-145) Bedside Potassium 4.1mmol/L (3.5-5.0) Bedside Chloride 106mmol/L (98-110) Bedside Total CO2 21mmol/L (23-32) Bedside Blood Urea Nitrogen 27mg/dL (8-26) Bedside Creatinine 1.4mg/dL (0.5-1.4) Bedside Ionized Calcium (Kerwin) 1.13mmol/L (1.13-1.32) Triglycerides Level 120mg/dL (0-150) Cholesterol Level 200mg/dL (0-200) LDL Cholesterol, Calculated 143mg/dL (0-100) VLDL Cholesterol, Calculated 24mg/dL (0-40) HDL Cholesterol 33mg/dL (40-60) Cholesterol/HDL Ratio 6.1 Thyroid Stimulating Hormone (TSH) 1.763uIU/mL (0.358-3.74) Assessment and Plan Assessmemt and Plan likely DC in AM admit last night with STEMI Problems Medical Problems: (1) Acute [place] Status: Acute (2) STEMI (ST elevation myocardial infarction) Status: Acute Problems: Comment Review of Relevant I have reviewed the following items panchito (where applicable) has been applied. Labs Laboratory Tests Test 01/27/17 17:18 01/27/17 17:24 01/27/17 17:30 01/28/17 02:50 White Blood Count 18.1x10^3/uL (4.0-11.0) 14.9x10^3/uL (4.0-11.0) Red Blood Count 5.15x10^6/uL (4.30-5.70) 4.65x10^6/uL (4.30-5.70) Hemoglobin 16.0g/dL (13.0-17.5) 14.5g/dL (13.0-17.5) Hematocrit 49.4% (39.0-53.0) 43.2% (39.0-53.0) Mean Corpuscular Volume 96fL (79-100) 93fL (79-100) Mean Corpuscular Hemoglobin 31pg (25-35) 31pg (25-35) Mean Corpuscular Hemoglobin Concent 32g/dL (31-37) 34g/dL (31-37) Red Cell Distribution Width 14.5% (11.5-14.5) 14.6% (11.5-14.5) Platelet Count 299x10^3/uL (140-400) 252x10^3/uL (140-400) Neutrophils (%) (Auto) 67% (31-73) 63% (31-73) Lymphocytes (%) (Auto) 21% (24-48) 25% (24-48) Monocytes (%) (Auto) 10% (0-9) 11% (0-9) Eosinophils (%) (Auto) 1% (0-3) 1% (0-3) Basophils (%) (Auto) 1% (0-3) 0% (0-3) Neutrophils # (Auto) 12.1x10^3uL (1.8-7.7) 9.4x10^3uL (1.8-7.7) Lymphocytes # (Auto) 3.9x10^3/uL (1.0-4.8) 3.8x10^3/uL (1.0-4.8) Monocytes # (Auto) 1.8x10^3/uL (0.0-1.1) 1.6x10^3/uL (0.0-1.1) Eosinophils # (Auto) 0.2x10^3/uL (0.0-0.7) 0.1x10^3/uL (0.0-0.7) Basophils # (Auto) 0.1x10^3/uL (0.0-0.2) 0.1x10^3/uL (0.0-0.2) Sodium Level 145mmol/L (136-145) 141mmol/L (136-145) Potassium Level 4.2mmol/L (3.5-5.1) 4.3mmol/L (3.5-5.1) Chloride Level 107mmol/L (98-107) 108mmol/L (98-107) Carbon Dioxide Level 25mmol/L (21-32) 23mmol/L (21-32) Anion Gap 13 (6-14) 20mmol/L (6-14) 10 (6-14) Blood Urea Nitrogen 26mg/dL (8-26) 22mg/dL (8-26) Creatinine 1.5mg/dL (0.7-1.3) 1.0mg/dL (0.7-1.3) Estimated GFR (Cockcroft-Gault) 47.6 76.0 Glucose Level 143mg/dL (70-99) 138mg/dL (70-99) 94mg/dL (70-99) Calcium Level 9.6mg/dL (8.5-10.1) 8.8mg/dL (8.5-10.1) Magnesium Level 2.1mg/dL (1.8-2.4) Total Bilirubin 0.3mg/dL (0.2-1.0) Direct Bilirubin 0.1mg/dL (0.0-0.2) Aspartate Amino Transf (AST/SGOT) 22U/L (15-37) Alanine Aminotransferase (ALT/SGPT) 27U/L (16-63) Alkaline Phosphatase 101U/L (46-116) Creatine Kinase 94U/L (39-308) Creatine Kinase MB (Mass) 1.7ng/mL (0.0-3.6) Creatine Kinase MB Relative Index 1.8% (0-4) Troponin I Quantitative < 0.017ng/mL (0.000-0.055) ON-Xmu-E-Type Natriuretic Peptide 50pg/mL (0-124) Total Protein 7.9g/dL (6.4-8.2) Albumin 3.7g/dL (3.4-5.0) Bedside Troponin I 0.00ng/ml (<0.08) Bedside Hemoglobin 17.0g/dL (14-18) Bedside Hematocrit 50% (37-52) Bedside Sodium 143mmol/L (135-145) Bedside Potassium 4.1mmol/L (3.5-5.0) Bedside Chloride 106mmol/L (98-110) Bedside Total CO2 21mmol/L (23-32) Bedside Blood Urea Nitrogen 27mg/dL (8-26) Bedside Creatinine 1.4mg/dL (0.5-1.4) Bedside Ionized Calcium (Kerwin) 1.13mmol/L (1.13-1.32) Triglycerides Level 120mg/dL (0-150) Cholesterol Level 200mg/dL (0-200) LDL Cholesterol, Calculated 143mg/dL (0-100) VLDL Cholesterol, Calculated 24mg/dL (0-40) HDL Cholesterol 33mg/dL (40-60) Cholesterol/HDL Ratio 6.1 Thyroid Stimulating Hormone (TSH) 1.763uIU/mL (0.358-3.74) Laboratory Tests Test 01/27/17 17:18 01/27/17 17:24 01/27/17 17:30 01/28/17 02:50 White Blood Count 18.1x10^3/uL (4.0-11.0) 14.9x10^3/uL (4.0-11.0) Red Blood Count 5.15x10^6/uL (4.30-5.70) 4.65x10^6/uL (4.30-5.70) Hemoglobin 16.0g/dL (13.0-17.5) 14.5g/dL (13.0-17.5) Hematocrit 49.4% (39.0-53.0) 43.2% (39.0-53.0) Mean Corpuscular Volume 96fL (79-100) 93fL (79-100) Mean Corpuscular Hemoglobin 31pg (25-35) 31pg (25-35) Mean Corpuscular Hemoglobin Concent 32g/dL (31-37) 34g/dL (31-37) Red Cell Distribution Width 14.5% (11.5-14.5) 14.6% (11.5-14.5) Platelet Count 299x10^3/uL (140-400) 252x10^3/uL (140-400) Neutrophils (%) (Auto) 67% (31-73) 63% (31-73) Lymphocytes (%) (Auto) 21% (24-48) 25% (24-48) Monocytes (%) (Auto) 10% (0-9) 11% (0-9) Eosinophils (%) (Auto) 1% (0-3) 1% (0-3) Basophils (%) (Auto) 1% (0-3) 0% (0-3) Neutrophils # (Auto) 12.1x10^3uL (1.8-7.7) 9.4x10^3uL (1.8-7.7) Lymphocytes # (Auto) 3.9x10^3/uL (1.0-4.8) 3.8x10^3/uL (1.0-4.8) Monocytes # (Auto) 1.8x10^3/uL (0.0-1.1) 1.6x10^3/uL (0.0-1.1) Eosinophils # (Auto) 0.2x10^3/uL (0.0-0.7) 0.1x10^3/uL (0.0-0.7) Basophils # (Auto) 0.1x10^3/uL (0.0-0.2) 0.1x10^3/uL (0.0-0.2) Sodium Level 145mmol/L (136-145) 141mmol/L (136-145) Potassium Level 4.2mmol/L (3.5-5.1) 4.3mmol/L (3.5-5.1) Chloride Level 107mmol/L (98-107) 108mmol/L (98-107) Carbon Dioxide Level 25mmol/L (21-32) 23mmol/L (21-32) Anion Gap 13 (6-14) 20mmol/L (6-14) 10 (6-14) Blood Urea Nitrogen 26mg/dL (8-26) 22mg/dL (8-26) Creatinine 1.5mg/dL (0.7-1.3) 1.0mg/dL (0.7-1.3) Estimated GFR (Cockcroft-Gault) 47.6 76.0 Glucose Level 143mg/dL (70-99) 138mg/dL (70-99) 94mg/dL (70-99) Calcium Level 9.6mg/dL (8.5-10.1) 8.8mg/dL (8.5-10.1) Magnesium Level 2.1mg/dL (1.8-2.4) Total Bilirubin 0.3mg/dL (0.2-1.0) Direct Bilirubin 0.1mg/dL (0.0-0.2) Aspartate Amino Transf (AST/SGOT) 22U/L (15-37) Alanine Aminotransferase (ALT/SGPT) 27U/L (16-63) Alkaline Phosphatase 101U/L (46-116) Creatine Kinase 94U/L (39-308) Creatine Kinase MB (Mass) 1.7ng/mL (0.0-3.6) Creatine Kinase MB Relative Index 1.8% (0-4) Troponin I Quantitative < 0.017ng/mL (0.000-0.055) CL-Giw-R-Type Natriuretic Peptide 50pg/mL (0-124) Total Protein 7.9g/dL (6.4-8.2) Albumin 3.7g/dL (3.4-5.0) Bedside Troponin I 0.00ng/ml (<0.08) Bedside Hemoglobin 17.0g/dL (14-18) Bedside Hematocrit 50% (37-52) Bedside Sodium 143mmol/L (135-145) Bedside Potassium 4.1mmol/L (3.5-5.0) Bedside Chloride 106mmol/L (98-110) Bedside Total CO2 21mmol/L (23-32) Bedside Blood Urea Nitrogen 27mg/dL (8-26) Bedside Creatinine 1.4mg/dL (0.5-1.4) Bedside Ionized Calcium (Kerwin) 1.13mmol/L (1.13-1.32) Triglycerides Level 120mg/dL (0-150) Cholesterol Level 200mg/dL (0-200) LDL Cholesterol, Calculated 143mg/dL (0-100) VLDL Cholesterol, Calculated 24mg/dL (0-40) HDL Cholesterol 33mg/dL (40-60) Cholesterol/HDL Ratio 6.1 Thyroid Stimulating Hormone (TSH) 1.763uIU/mL (0.358-3.74) Medications Current Medications Aspirin (Children'S Aspirin) 324 mg 1X ONCE PO Last administered on 01/27/17 17:29; Start 01/27/17 at 17:30; Stop 01/27/17 at 17:31; Status DC Heparin Sodium (Porcine) 4,000 unit 1X ONCE IV Last administered on 01/27/17 17:30; Start 01/27/17 at 17:30; Stop 01/27/17 at 17:31; Status DC Fentanyl Citrate 50 mcg 50 mcg PRN Q15MIN PRN IV PAIN GREATER THAN 3/10; Start 01/27/17 at 17:30; Stop 01/28/17 at 17:29 Sodium Chloride (Iv Sodium Chloride 0.9% 1000ml Bag) 1,000 ml @ 1,000 mls/hr Q1H IV Last administered on 01/27/17 17:31; Start 01/27/17 at 17:21; Stop at 18:20; Status DC Ondansetron HCl (Zofran) 4 mg PRN Q8HRS PRN IV NAUSEA/VOMITING; Start 01/27/17 at 17:30; Stop 01/28/17 at 17:29 Fentanyl Citrate 50 mcg 50 mcg PRN Q2HR PRN IV PAIN; Start 01/27/17 at 17:30; Stop 01/28/17 at 17:29 Heparin Sodium/ Sodium Chloride 500 ml @ As Directed STK-MED ONCE .ROUTE ; Start 01/27/17 at 17:41; Stop 01/27/17 at 17:42; Status DC Lidocaine HCl 20 ml STK-MED ONCE .ROUTE ; Start 01/27/17 at 17:41; Stop 01/27/17 at 17:42; Status DC Iohexol (Omnipaque 300 Mg/ml) 100 ml STK-MED ONCE .ROUTE ; Start 01/27/17 at 17: 42; Stop 01/27/17 at 17:43; Status DC Fentanyl Citrate (Fentanyl 2ml Vial) 100 mcg STK-MED ONCE .ROUTE ; Start at 17:56; Stop 01/27/17 at 17:57; Status DC Midazolam HCl (Versed) 2 mg STK-MED ONCE .ROUTE ; Start 01/27/17 at 17:56; Stop 01/27/17 at 17:57; Status DC Bivalirudin (Angiomax) 250 mg STK-MED ONCE IV ; Start 01/27/17 at 17:57; Stop 01/27/17 at 17:58; Status DC Heparin Sodium/ Sodium Chloride 1,000 unit 1X ONCE IART Last administered on 18:29; Start 01/27/17 at 18:15; Stop 01/27/17 at 18:18; Status DC Midazolam HCl (Versed) 2 mg 1X ONCE IV Last administered on 01/27/17 18:28; Start 01/27/17 at 18:15; Stop 01/27/17 at 18:18; Status DC Fentanyl Citrate (Fentanyl 2ml Vial) 100 mcg 1X ONCE IV Last administered on 18:28; Start 01/27/17 at 18:15; Stop 01/27/17 at 18:18; Status DC Iohexol (Omnipaque 300 Mg/ml) 100 ml 1X ONCE IART Last administered on 18:29; Start 01/27/17 at 18:15; Stop 01/27/17 at 18:18; Status DC Lidocaine HCl 20 ml 1X ONCE IJ Last administered on 01/27/17 18:27; Start 01/27 at 18:15; Stop 01/27/17 at 18:18; Status DC Clopidogrel Bisulfate (Plavix) 75 mg STK-MED ONCE .ROUTE ; Start 01/27/17 at 18: 14; Stop 01/27/17 at 18:15; Status DC Clopidogrel Bisulfate (Plavix) 600 mg 1X ONCE PO Last administered on 18:27; Start 01/27/17 at 18:15; Stop 01/27/17 at 18:18; Status DC Bivalirudin 250 mg 250 mg 1X ONCE IV Last administered on 01/27/17 18:01; Start 01/27/17 at 18:30; Stop 01/27/17 at 18:31; Status DC Sodium Chloride (Iv Sodium Chloride 0.45%) 1,000 ml @ 100 mls/hr Q10H IV Last administered on 01/27/17 19:54; Start 01/27/17 at 18:37 Aspirin (Ecotrin) 325 mg DAILYWBKFT PO Last administered on 01/28/17 08:37; Start 01/28/17 at 08:00 Clopidogrel Bisulfate (Plavix) 75 mg DAILYWBKFT PO Last administered on 08:37; Start 01/28/17 at 08:00 Metoprolol Tartrate (Lopressor) 12.5 mg BID PO Last administered on 01/28/17 08 :36; Start 01/27/17 at 21:00 Atorvastatin Calcium (Lipitor) 40 mg QHS PO Last administered on 01/27/17 21:03 ; Start 01/27/17 at 21:00 Acetaminophen (Tylenol) 650 mg PRN Q6HRS PRN PO MILD PAIN / TEMP; Start at 18:45 Nitroglycerin (Nitrostat) 0.4 mg PRN Q5MIN PRN SL CHEST PAIN; Start 01/27/17 at 18:45 Hydralazine HCl (Apresoline) 10 mg PRN Q4HRS PRN IVP ELEVATED BP, SEE COMMENTS ; Start 01/27/17 at 19:15 Active Scripts Active Reported Naproxen 500 Mg Tablet 2 Tab PO BID PRN Vitals/I & O Vital Sign - Last 24 Hours 01/27/17 01/27/17 01/27/17 01/27/17 17:14 17:15 17:25 17:30 Pulse 86 88 86 92 Resp 20 9 19 B/P 114/71 114/71 117/76 124/82 Pulse Ox 95 95 95 94 O2 Delivery Room Air Room Air Room Air Room Air 01/27/17 01/27/17 01/27/17 01/27/17 17:35 17:40 18:28 18:29 Pulse 86 92 96 Resp 16 18 B/P 131/78 134/88 Pulse Ox 98 97 100 100 O2 Delivery Room Air Room Air Nasal Cannula Nasal Cannula O2 Flow Rate 2.0 2.0 01/27/17 01/27/17 01/27/17 01/27/17 19:00 19:15 19:15 19:15 Temp 98.1 98.1 Pulse 90 82 90 90 Resp 18 B/P 141/98 130/87 141/98 Pulse Ox 100 O2 Delivery Room Air Nasal Cannula Nasal Cannula O2 Flow Rate 2.0 2.0 01/27/17 01/27/17 01/27/17 01/27/17 19:30 19:30 19:45 19:45 Pulse 90 76 90 86 B/P 130/84 131/88 Pulse Ox 100 100 O2 Delivery Nasal Cannula Nasal Cannula O2 Flow Rate 2.0 2.0 01/27/17 01/27/17 01/27/17 01/27/17 20:00 20:00 20:11 20:20 Pulse 90 88 B/P 131/86 Pulse Ox 100 O2 Delivery Nasal Cannula Nasal Cannula Nasal Cannula O2 Flow Rate 2.0 2.0 2.0 01/27/17 01/27/17 01/27/17 01/27/17 20:30 20:30 20:45 21:00 Pulse 76 90 76 74 B/P 162/100 Pulse Ox 100 100 100 O2 Delivery Nasal Cannula Nasal Cannula Nasal Cannula O2 Flow Rate 2.0 2.0 2.0 01/27/17 01/27/17 01/27/17 01/27/17 21:00 21:04 21:15 21:30 Pulse 74 73 73 72 Resp 18 B/P 132/83 132/83 142/87 Pulse Ox 100 O2 Delivery Room Air Nasal Cannula O2 Flow Rate 2.0 01/27/17 01/27/17 01/27/17 01/27/17 21:30 22:00 22:30 22:35 Temp 98.4 98.4 Pulse 72 72 72 67 Resp 20 B/P 161/81 Pulse Ox 100 100 100 99 O2 Delivery Nasal Cannula Nasal Cannula Nasal Cannula Room Air O2 Flow Rate 2.0 2.0 2.0 01/27/17 01/27/17 01/28/17 01/28/17 23:00 23:30 00:00 01:00 Pulse 67 56 56 56 Resp 18 B/P 122/73 Pulse Ox 99 98 98 98 O2 Delivery Nasal Cannula Room Air Nasal Cannula Nasal Cannula O2 Flow Rate 2.0 2.0 2.0 01/28/17 01/28/17 01/28/17 01/28/17 02:00 03:10 07:00 08:00 Temp 98.9 98.1 98.9 98.1 Pulse 56 73 69 Resp 18 18 B/P 132/78 123/75 Pulse Ox 98 96 96 O2 Delivery Nasal Cannula Room Air Room Air Nasal Cannula O2 Flow Rate 2.0 2.0 01/28/17 01/28/17 01/28/17 08:00 08:36 11:00 Temp 97.9 97.9 Pulse 72 68 Resp 18 B/P 123/75 109/57 Pulse Ox 95 O2 Delivery Nasal Cannula Room Air O2 Flow Rate 2.0 Intake and Output 01/27/17 01/27/17 01/28/17 15:00 23:00 07:00 Intake Total 1440 ml Output Total 400 ml 700 ml Balance -400 ml 740 ml LETTY RODAS MD Jan 28, 2017 14:54
--- NOTE | 2017-01-28 16:17 | CARD ---
APPROVED REPORT EXAM: Two-dimensional and M-mode echocardiogram with Doppler and color Doppler. Other Information Quality : Average Rhythm : NSR INDICATION STEMI 2D DIMENSIONS Left Atrium(2D)3.5 (1.6-4.0cm)IVSd1.1 (0.7-1.1cm) Aortic Root(2D)3.4 (2.0-3.7cm)LVDd3.9 (3.9-5.9cm) LVOT Diameter2.0 (1.8-2.4cm)PWd1.2 (0.7-1.1cm) LVDs3.0 (2.5-4.0cm)FS (%) 23.7 % SV31.1 mlLVEF(%)48.0 (>50%) Aortic Valve AoV Peak Bhargav.119.3cm/sAoV VTI24.6cm AO Peak GR.5.7mmHgLVOT VTI 19.23cm AO Mean GR.3mmHgAVA (VTI)2.48cm2 Mitral Valve MV E Upwbxzzo37.9cm/sMV E Peak Gr.3mmHg MV DECEL [id number] A Mhdwmaoh71.2cm/s MV E Mean Gr.1mmHgMV [id number] E/A Ratio1.4MV A [id number] MVA (PHT)4.07cm2 TDI Lateral E' P. V9.87cm/sMedial E' P. V10.46cm/s E/Lateral E'6.8E/Medial E'6.4 Tricuspid Valve TR P. Onflwhyt832sf/sRAP [id number] TR Peak Gr.[id number] LEFT VENTRICLE The left ventricle is normal size. There is normal left ventricular wall thickness. Left ventricle sy stolic function is low normal to mildly decreased. The Ejection Fraction is 45-50%. Mid lateral hypok inesis. The left ventricular diastolic function and filling is normal for age. RIGHT VENTRICLE The right ventricle is normal size. The right ventricular systolic function is normal. ATRIA The left atrium size is normal. The right atrium size is normal. The interatrial septum is intact wit h no evidence for an atrial septal defect or patent foramen ovale as noted on 2-D or Doppler imaging. AORTIC VALVE The aortic valve is not well visualized. Doppler and Color Flow revealed no significant aortic regurg itation. There is no significant aortic valvular stenosis. MITRAL VALVE The mitral valve is normal in structure and function. There is no mitral valve stenosis. Doppler and Color Flow revealed mild mitral regurgitation. TRICUSPID VALVE The tricuspid valve is normal in structure and function. Doppler and Color Flow revealed trace to mil d tricuspid regurgitation. The PA pressure was estimated at 29 mmHg. There is no tricuspid valve sten osis. PULMONIC VALVE The pulmonic valve is not well visualized. Doppler and Color Flow revealed no pulmonic valvular regur gitation. There is no pulmonic valvular stenosis. GREAT VESSELS The aortic root is normal in size. The IVC is normal in size and collapses >50% with inspiration. PERICARDIAL EFFUSION There is no evidence of significant pericardial effusion. Critical Notification Critical Value: No <Conclusion> The left ventricle is normal size. Left ventricle systolic function is low normal to mildly decreased. The Ejection Fraction is 45-50%. Mid lateral hypokinesis. There is no significant aortic valvular stenosis. Doppler and Color Flow revealed no significant aortic regurgitation. Doppler and Color Flow revealed mild mitral regurgitation. Doppler and Color Flow revealed trace to mild tricuspid regurgitation. The PA pressure was estimated at 29 mmHg.
[2017-01-28] MEDS: ATORVASTATIN CALCIUM 40 MG TABLET. PO SCH (20:55)
[2017-01-29 03:00] VITALS: BP 101/54
[2017-01-29 07:00] VITALS: BP 119/72
[2017-01-29] MEDS: ASPIRIN ENTERIC COATED 325 MG TABLET.DR. PO SCH (08:29)
[2017-01-29] MEDS: CLOPIDOGREL BISULFATE 75 MG TABLET PO SCH (08:29)
[2017-01-29] MEDS: METOPROLOL TART IMMED RELEASE 25 MG TABLET PO SCH (08:30)
--- NOTE | 2017-01-29 09:43 | PDOC ---
CARDIO Progress Notes Date and Time Date of Service 01/29/2017 Time of Evaluation 0938 Subjective Subjective: No Chest Pain, No shortness of breath, No Palpitations, No Dizziness Vitals Vitals Vital Signs Date Time Temp Pulse Resp B/P Pulse Ox O2 Delivery O2 Flow Rate FiO2 01/29/17 08:30 74 119/74 01/29/17 07:00 98.3 18 96 Room Air 98.3 01/28/17 08:00 2.0 Weight Weight [ ] Input and Output Intake and Output Intake and Output 01/29/17 07:00 Intake Total 1680 ml Balance 1680 ml Intake Oral 1680 ml # Voids 4 Physical Exam HEENT: Neck Supple W Full Motion Chest: Symmetric LUNGS: Clear to Auscultation Heart: S1S2, RRR, no murmurs, other (tele: SR) Abdomen: Soft N/T Extremities: 2+ Dorsalis Pedis, 2+ Posterior Tibial, No Edema, Other (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 STEMI PCI/SULEIMAN to circumflex and RCA with DAPT for the next 12 months LVEF 45-50% with mid lateral hypokinesis continue medical management with Beta-blockers and statin therapy 2. HLD LDLs = 143 continue high dose statin therapy recommend repeat FLP in 6 - 8 weeks 3. HTN controlled with beta-blockers 4. tobacco abuse smoking cessation discussed agreeable with discharge f/u with cardiology in 4 weeks LARA GAYLE APRN Jan 29, 2017 09:42
[2017-01-29] MEDS ORDERED: NITR0.4T SL (09:56)
[2017-01-29] MEDS ORDERED: ATOR40TA59 PO (09:56)
[2017-01-29] MEDS ORDERED: ASPI325T11 PO (09:56)
[2017-01-29] MEDS ORDERED: CLOP75TA PO (09:56)
[2017-01-29] MEDS ORDERED: METO25TA4 PO (09:56)
[2017-01-29 10:26] VITALS: BP 113/61
--- NOTE | 2017-01-29 10:39 | PDOC3 ---
Discharge Summary Visit Information Date of Admission: Jan 27, 2017 Date of Discharge: Jan 29, 2017 Admitting Diagnosis: stemi Admitting Diagnosis Comment: STEMI Final Diagnosis 1. STEMI 2. HLD LDLs = 143 continue high dose statin therapy recommend repeat FLP in 6 - 8 weeks 3. HTN controlled with beta-blockers 4. tobacco abuse smoking cessation discussed agreeable with discharge f/u with cardiology in 4 weeks Problems Medical Problems: (1) Acute MD Status: Acute (2) STEMI (ST elevation myocardial infarction) Status: Acute Brief Hospital Course Allergies Allergies Coded Allergies Type Severity Reaction Last Updated Verified Penicillins Allergy Intermediate 01/28/17 Yes Vital Signs Vital Signs Date Time Temp Pulse Resp B/P Pulse Ox O2 Delivery O2 Flow Rate FiO2 01/29/17 10:26 98.1 58 17 113/61 97 Room Air 98.1 01/29/17 08:00 2.0 Lab Results Laboratory Tests Test 01/27/17 17:18 01/27/17 17:24 01/27/17 17:30 01/28/17 02:50 White Blood Count 18.1x10^3/uL (4.0-11.0) 14.9x10^3/uL (4.0-11.0) Red Blood Count 5.15x10^6/uL (4.30-5.70) 4.65x10^6/uL (4.30-5.70) Hemoglobin 16.0g/dL (13.0-17.5) 14.5g/dL (13.0-17.5) Hematocrit 49.4% (39.0-53.0) 43.2% (39.0-53.0) Mean Corpuscular Volume 96fL (79-100) 93fL (79-100) Mean Corpuscular Hemoglobin 31pg (25-35) 31pg (25-35) Mean Corpuscular Hemoglobin Concent 32g/dL (31-37) 34g/dL (31-37) Red Cell Distribution Width 14.5% (11.5-14.5) 14.6% (11.5-14.5) Platelet Count 299x10^3/uL (140-400) 252x10^3/uL (140-400) Neutrophils (%) (Auto) 67% (31-73) 63% (31-73) Lymphocytes (%) (Auto) 21% (24-48) 25% (24-48) Monocytes (%) (Auto) 10% (0-9) 11% (0-9) Eosinophils (%) (Auto) 1% (0-3) 1% (0-3) Basophils (%) (Auto) 1% (0-3) 0% (0-3) Neutrophils # (Auto) 12.1x10^3uL (1.8-7.7) 9.4x10^3uL (1.8-7.7) Lymphocytes # (Auto) 3.9x10^3/uL (1.0-4.8) 3.8x10^3/uL (1.0-4.8) Monocytes # (Auto) 1.8x10^3/uL (0.0-1.1) 1.6x10^3/uL (0.0-1.1) Eosinophils # (Auto) 0.2x10^3/uL (0.0-0.7) 0.1x10^3/uL (0.0-0.7) Basophils # (Auto) 0.1x10^3/uL (0.0-0.2) 0.1x10^3/uL (0.0-0.2) Sodium Level 145mmol/L (136-145) 141mmol/L (136-145) Potassium Level 4.2mmol/L (3.5-5.1) 4.3mmol/L (3.5-5.1) Chloride Level 107mmol/L (98-107) 108mmol/L (98-107) Carbon Dioxide Level 25mmol/L (21-32) 23mmol/L (21-32) Anion Gap 13 (6-14) 20mmol/L (6-14) 10 (6-14) Blood Urea Nitrogen 26mg/dL (8-26) 22mg/dL (8-26) Creatinine 1.5mg/dL (0.7-1.3) 1.0mg/dL (0.7-1.3) Estimated GFR (Cockcroft-Gault) 47.6 76.0 Glucose Level 143mg/dL (70-99) 138mg/dL (70-99) 94mg/dL (70-99) Calcium Level 9.6mg/dL (8.5-10.1) 8.8mg/dL (8.5-10.1) Magnesium Level 2.1mg/dL (1.8-2.4) Total Bilirubin 0.3mg/dL (0.2-1.0) Direct Bilirubin 0.1mg/dL (0.0-0.2) Aspartate Amino Transf (AST/SGOT) 22U/L (15-37) Alanine Aminotransferase (ALT/SGPT) 27U/L (16-63) Alkaline Phosphatase 101U/L (46-116) Creatine Kinase 94U/L (39-308) Creatine Kinase MB (Mass) 1.7ng/mL (0.0-3.6) Creatine Kinase MB Relative Index 1.8% (0-4) Troponin I Quantitative < 0.017ng/mL (0.000-0.055) ZM-Atg-D-Type Natriuretic Peptide 50pg/mL (0-124) Total Protein 7.9g/dL (6.4-8.2) Albumin 3.7g/dL (3.4-5.0) Bedside Troponin I 0.00ng/ml (<0.08) Bedside Hemoglobin 17.0g/dL (14-18) Bedside Hematocrit 50% (37-52) Bedside Sodium 143mmol/L (135-145) Bedside Potassium 4.1mmol/L (3.5-5.0) Bedside Chloride 106mmol/L (98-110) Bedside Total CO2 21mmol/L (23-32) Bedside Blood Urea Nitrogen 27mg/dL (8-26) Bedside Creatinine 1.4mg/dL (0.5-1.4) Bedside Ionized Calcium (Kerwin) 1.13mmol/L (1.13-1.32) Triglycerides Level 120mg/dL (0-150) Cholesterol Level 200mg/dL (0-200) LDL Cholesterol, Calculated 143mg/dL (0-100) VLDL Cholesterol, Calculated 24mg/dL (0-40) HDL Cholesterol 33mg/dL (40-60) Cholesterol/HDL Ratio 6.1 Thyroid Stimulating Hormone (TSH) 1.763uIU/mL (0.358-3.74) Brief Hospital Course Mr. Shaffer is a 61 old admited [facility] ER, acute chest pain STEMI team activated PCI/SULEIMAN to circumflex and RCA with DAPT started, plan 12 mos noted LVEF 45-50% with mid lateral hypokinesis Discharge Information Condition at Discharge: Improved Follow Up: Weeks Disposition/Orders: D/C to Home Scheduled PRN Naproxen (Naproxen) 2 TAB PO BID PRN PRN PAIN (Reported) Patient Instructions Patient Instructions continue medical management with Beta-blockers and statin therapy luis e< 30 min f/u CV 4 weeks Aspirin 325mg daily metoprolol 12.5 mg BID Atorvastatin 40 daily Plavix, 75 mg daily LETTY RODAS MD Jan 29, 2017 10:39
== END 2017-01-29 11:25 | disposition home or self-care (01) | DRG 248 ==
LOC: ER 17:05 → 2 NORTH 17:28 → ER 17:50
PROVIDERS: ADMIT Internal Medicine; ATTEND Internal Medicine
PROC: 02713EZ Dilation of Coronary Artery, Two Arteries with Two Intraluminal Devices, Percutaneous Approach (ICD-10-PCS; principal; 2017-01-27)
PROC: 4A023N7 Measurement of Cardiac Sampling and Pressure, Left Heart, Percutaneous Approach (ICD-10-PCS; 2017-01-27)
PROC: B2111ZZ Fluoroscopy of Multiple Coronary Arteries using Low Osmolar Contrast (ICD-10-PCS; 2017-01-27)
PROC: B2151ZZ Fluoroscopy of Left Heart using Low Osmolar Contrast (ICD-10-PCS; 2017-01-27)
DX: I21.19 ST elevation (STEMI) myocardial infarction involving other coronary artery of inferior wall (principal); N17.0 Acute kidney failure with tubular necrosis; R65.10 Systemic inflammatory response syndrome (SIRS) of non-infectious origin without acute organ dysfunction; E66.9 Obesity, unspecified; E78.5 Hyperlipidemia, unspecified; F17.200 Nicotine dependence, unspecified, uncomplicated; I10 Essential (primary) hypertension; F32.9 Major depressive disorder, single episode, unspecified; I25.2 Old myocardial infarction; Z68.33 Body mass index [BMI] 33.0-33.9, adult; Z82.49 Family history of ischemic heart disease and other diseases of the circulatory system; Z88.0 Allergy status to penicillin; Z79.899 Other long term (current) drug therapy; Z79.82 Long term (current) use of aspirin; N18.3 Chronic kidney disease, stage 3 (moderate)
CPT/HCPCS: 36415; 71010; 80047; 80048; 80061; 80076; 82553; 83735; 83880; 84443; 84484; 85027; 92928; 92941; 93005; 93306; 93458; 96374; C1725; C1769; C1771; C1877; C1887; C1892; G0269; J0583; J2250; J3010; J7030; Q9967; 99291-25

== ENCOUNTER 2017-03-07 06:32 | Observation (INO) | payer SELFPAY ==
[2017-03-07] VITALS (12 sets, daily range): BP systolic 87–116; BP diastolic 29–69
[~2017-03-07] VITALS: Ht 185.4 cm; Wt 117.9 kg
[~2017-03-07 06:32] MED LIST: ASPI325T11 PO; ATOR40TA59 PO; CLOP75TA PO; METO25TA4 PO; NAPR500T3 PO; NITR0.4T SL
[2017-03-07] MEDS ORDERED: GLUC1TAB26 PO (07:08)
[2017-03-07] MEDS ORDERED: ASPI-482 PO (07:08)
[2017-03-07] MEDS ORDERED: LIDOCAINE 2% 20 ML VIAL. ONE (07:23)
[2017-03-07] MEDS ORDERED: IODIXANOL 320 MG/ML 100 ML VIAL. ONE ×3 (07:23→10:59)
[2017-03-07 07:26] LABS: HEMATOCRIT 41.2 % (39.0-53.0); HEMOGLOBIN 13.6 g/dL (13.0-17.5); RED BLOOD COUNT 4.37 x10^6/uL (4.30-5.70); RED CELL DISTRIBUTION WIDTH 13.6 % (11.5-14.5); WHITE BLOOD COUNT 9.8 x10^3/uL (4.0-11.0)
[2017-03-07 07:36] LABS: PROTHROMBIN TIME PATIENT 12.8 SEC (11.7-14.0)
[2017-03-07 07:39] LABS: CALCIUM 8.6 mg/dL (8.5-10.1); CREATININE 1.1 mg/dL (0.7-1.3); GFR 68.1; POTASSIUM 4.3 mmol/L (3.5-5.1)
[2017-03-07] MEDS ORDERED: FENTANYL PF 250 MCG/5 ML VIAL. ONE (08:15)
[2017-03-07] MEDS ORDERED: MIDAZOLAM HCL/PF 5 MG/5 ML VIAL. ONE (08:15)
[2017-03-07] MEDS ORDERED: FENTANYL PF 250 MCG/5 ML VIAL. IV ONE (08:45)
[2017-03-07] MEDS ORDERED: MIDAZOLAM HCL/PF 5 MG/5 ML VIAL. IV ONE (08:45)
[2017-03-07] MEDS ORDERED: LIDOCAINE 2% 20 ML VIAL. IJ ONE (08:45)
[2017-03-07] MEDS ORDERED: IODIXANOL 320 MG/ML 100 ML VIAL. IART ONE (08:45)
[2017-03-07] MEDS ORDERED: HEPARIN for IV BOLUS 10,000 UNIT/10 ML VIAL. ONE ×2 (08:54→10:22)
[2017-03-07] MEDS ORDERED: CONTRAST GIVEN MC PRN (09:00)
[2017-03-07] MEDS ORDERED: HEPARIN for IV BOLUS 10,000 UNIT/10 ML VIAL. IV ONE (09:30)
[2017-03-07] MEDS ORDERED: DIPHENHYDRAMINE 50 MG/ML VIAL. ONE (09:33)
[2017-03-07] MEDS ORDERED: DIPHENHYDRAMINE 50 MG/ML VIAL. IVP ONE (10:00)
[2017-03-07] MEDS ORDERED: IV NORMAL SALINE 250ML 250 ML IV ONE (11:00)
[2017-03-07] MEDS ORDERED: CLOPIDOGREL BISULFATE 75 MG TABLET ONE (11:37)
[2017-03-07] MEDS ORDERED: CLOPIDOGREL BISULFATE 75 MG TABLET PO ONE (11:45)
[2017-03-07] MEDS ORDERED: NITROGLYCERIN 200 MCG/2 ML SYRINGE FOR CATH/VASC LAB. IART ONE (11:45)
--- NOTE | 2017-03-07 11:54 | PDOC ---
MODERATE SEDATION ASSESSMENT RISKS/ALTERNATIVES Risks/Alternatives Risks and alternatives of this type of sedation and procedure discussed with: RISK/ALTERNATIVES: Patient H & P ON CHART H & P H & P on chart and reviewed for co-morbid conditions and appropriate labs. H&P ON CHART: Yes STATUS PREG STATUS ASSESSED: N/A MEDS/ALLERGIES REVIEWED Meds/Allergies Reviewed Medications and Allergies including time and route of recently administered narcotics and sedatives. MEDS/ALLERGIES REVIEWED: Yes ASA RATING ASA RATING: II AIRWAY ASSESSMENT Airway Assessment Airway patency, oral function limitations, presence of caps, crowns, dentures, partials, and ability to extend neck assessed. AIRWAY ASSESSMENT: Yes MALLAMPATI SCORE MALLAMPATI SCORE: II PRE-SEDATION ASSESSMENT PRE-SEDATION ASSESSMENT: Yes NIKITA MARQUEZ MD Mar 07, 2017 11:54
[2017-03-07] MEDS ORDERED: ACETAMINOPHEN 325 MG TABLET. PO PRN (12:00)
[2017-03-07] MEDS ORDERED: MAGNESIUM HYDROXIDE 2,400 MG/30 ML ORAL.SUSP. PO PRN (12:00)
[2017-03-07] MEDS ORDERED: NITROGLYCERIN SUBLINGUAL 0.4 MG BOTTLE OF 25. SL PRN (12:00)
--- NOTE | 2017-03-07 13:22 | CARD ---
APPROVED REPORT Patient StatusOUT-PATIENT Back Shoe Cutter: RT Mary (R) Procedure(s) performed: 1. Aortogram with bilateral lower extremity runoff 2. Successful complex CONE OPERATOR/stents placement to chronic total occlusion involving the right superficia l femoral and popliteal arteries. HISTORY : Peripheral vascular disease with claudication. PROCEDURE NARRATIVE After explaining the risks, benefits and alternative options, informed consent obtained from patient. Patient was brought to the cardiac Catia Designer and his groins were prepped and draped in the usual critical access hospital ion. 20 mL of 2% lidocaine was infiltrated into the skin and subcutaneous tissues of the left groin f or local anesthesia. Arterial access was obtained in the left common femoral artery and 5 Ukrainian hooper th was inserted. 6 Ukrainian pigtail catheter was used to perform aortogram and bilateral lower extremit y runoff. The following findings were noted. FINDINGS 1. No significant stenosis involving the distal descending aorta and bilateral common iliac arteries . 2. 30% stenosis involving the right external iliac artery without any significant gradient across th e lesion. No significant stenosis involving left external iliac and bilateral common femoral arteries . 3. Long 100% chronic total occlusion involving the distal segment of the right superficial femoral a rtery and proximal to mid segment of right popliteal artery with distal reconstitution from collatera ls. No significant stenosis involving the left superficial femoral and popliteal arteries4. 4. [id number], there is three-vessel runoff bilaterally. INTERVENTION The sheath in left groin was exchanged to a 6 Ukrainian 45 cm destination sheath was advanced over the a ortic preston with the help of across oval catheter and the tip was positioned in the right common fem oral artery. Several initial attempts to cross the chronic total occlusion involving the right common femoral and popliteal arteries using 0.035 inch glide wire with backup support from 4F angled glide catheter were unsuccessful. With the help of backup support from Navicross catheter, the proximal cap was pretreated with a 0.014 inch Connect 250T guidewire and after several advanced the distal cap wa s penetrated using a 0.014 inch Connect Flex guidewire. Contrast injections conformed intraluminal po sition distally. The stenosis was then dilated with a 4.0 x 1 20 mm [place] balloon. The popliteal seg ment stenosis was treated successfully with a 4.0 x 1 20 mm In-Pact drug coated balloon. The superfic ial femoral artery stenosis was predilated with a 6.0 x 100 mm [place] Bodo following which this was s uccessfully treated with a 6.0 x 1 20 mm Zuniga Supera self-expanding stent. Due to recoil in the pop liteal artery stenosis, this was dilated again with 5.0 x 80 mm [place] balloon following which this w as treated successfully with a 5.0 x 1 20 mm Supera stent. Final angiography showed resolution of bot h the stenoses to 0% with good distal flow. Patient hard of the procedure well. Hemostasis in the lef t groin was achieved using Perclose suture closure device. There were no immediate complications. Conclusion 1. 100% chronic and long total occlusion involving right superficial femoral and popliteal arteries. 2. Successful complex CONE OPERATOR/stent placement to the right superficial femoral and popliteal arteries. Recommendations Risk factor modification including Smoking cessation. Patient already receiving Plavix for CAD.
[2017-03-07] MEDS: IV 1/2 NORMAL SALINE 1,000 ML IV SCH (14:06)
[2017-03-08] MEDS: IV 1/2 NORMAL SALINE 1,000 ML IV SCH ×2 (00:41→08:18)
[2017-03-08 03:28] VITALS: BP 103/68
[2017-03-08 07:00] VITALS: BP 130/90
[2017-03-08 11:05] VITALS: BP 104/56
--- NOTE | 2017-03-08 12:19 | PDOC3 ---
Discharge Summary Visit Information Date of Admission: Mar 07, 2017 Date of Discharge: Mar 08, 2017 Admitting Diagnosis: peripheral vascular disease Final Diagnosis Peripheral vascular disease Coronary artery disease Hyperlipidemia Brief Hospital Course Allergies Allergies Coded Allergies Type Severity Reaction Last Updated Verified Penicillins Allergy Intermediate 03/07/17 Yes Vital Signs Vital Signs Date Time Temp Pulse Resp B/P Pulse Ox O2 Delivery O2 Flow Rate FiO2 03/08/17 11:05 98.0 79 16 104/56 99 Room Air 98.0 Lab Results Laboratory Tests Test 03/07/17 07:15 03/07/17 10:13 White Blood Count 9.8x10^3/uL (4.0-11.0) Red Blood Count 4.37x10^6/uL (4.30-5.70) Hemoglobin 13.6g/dL (13.0-17.5) Hematocrit 41.2% (39.0-53.0) Mean Corpuscular Volume 94fL (79-100) Mean Corpuscular Hemoglobin 31pg (25-35) Mean Corpuscular Hemoglobin Concent 33g/dL (31-37) Red Cell Distribution Width 13.6% (11.5-14.5) Platelet Count 209x10^3/uL (140-400) Prothrombin Time 12.8SEC (11.7-14.0) Prothromb Time International Ratio 1.0 (0.8-1.1) Sodium Level 142mmol/L (136-145) Potassium Level 4.3mmol/L (3.5-5.1) Chloride Level 107mmol/L (98-107) Carbon Dioxide Level 23mmol/L (21-32) Anion Gap 12 (6-14) Blood Urea Nitrogen 24mg/dL (8-26) Creatinine 1.1mg/dL (0.7-1.3) Estimated GFR (Cockcroft-Gault) 68.1 Glucose Level 103mg/dL (70-99) Calcium Level 8.6mg/dL (8.5-10.1) Activated Clotting Time 272sec (92-181) Brief Hospital Course Mr. Shaffer is a 61 old male with history of coronary artery disease was recently seen in our office for claudication symptoms and was found to have significant peripheral vascular disease on Quantaflo testing. He underwent aortogram with runoff that showed 100% chronic total occlusion involving the right superficial femoral and popliteal arteries. He underwent successful complex RAPID OUTSOLE STITCHER/stents placement to right SFA/popliteal arteries. He was hemodynamically stable and symptom-free during his hospital stay and his left groin looked good at the time of discharge. He will follow-up with our office in one month. Discharge Information Condition at Discharge: Stable Follow Up: Months (one) Disposition/Orders: D/C to Home Scheduled Aspirin (Aspir 81) 1 TAB PO DAILY (Reported) Atorvastatin Calcium (Atorvastatin Calcium) 40 MG PO QHS Clopidogrel Bisulfate (Clopidogrel) 75 MG PO DAILYWBKFT Gluc/Juan-Msm#2/C/D3/West/Born (Xknprolxrw-Fxbopskrzlz-Qft Tab) 1 EACH PO DAILY (Reported) Metoprolol Tartrate (Metoprolol Tartrate) 12.5 MG PO BID Scheduled PRN Nitroglycerin (Nitrostat) 0.4 MG SL PRN Q5MIN PRN PRN CHEST PAIN NIKITA MARQUEZ MD Mar 08, 2017 12:19
== END 2017-03-08 13:01 | disposition home or self-care (01) ==
LOC: CCL 06:32 → 4 NORTH 10:15
PROVIDERS: ADMIT Internal Medicine Cardiovascular Disease; ATTEND Internal Medicine Cardiovascular Disease
DX: I73.9 Peripheral vascular disease, unspecified (principal); I25.10 Atherosclerotic heart disease of native coronary artery without angina pectoris; E78.5 Hyperlipidemia, unspecified
CPT/HCPCS: 36415; 37226; 75630; 80048; 85027; 85347; 85610; 96361; 96374; 96375; C1725; C1769; C1771; C1876; C1885; C1892; G0269; G0378; G0379; J1200; J2250; J3010; J3490; J7050; J7030

== ENCOUNTER 2021-08-17 06:41 | Outpatient (CLI) | payer MEDICARE ==
[~2021-08-17] VITALS: Ht 185.4 cm; Wt 118.2 kg
[2021-08-17] VITALS (12 sets, daily range): BP systolic 102–137; BP diastolic 50–90
[~2021-08-17 06:41] MED LIST changes: +ASPI-482 PO; +GLUC1TAB26 PO; +NAPR-514 PO; -NAPR500T3 PO; -NITR0.4T SL; +NITR0.4T24 SL
[2021-08-17] MEDS ORDERED: IODIXANOL 320 MG/ML 100 ML VIAL. ONE (07:34)
[2021-08-17 07:43] LABS: HEMATOCRIT 45.3 % (39.0-53.0); HEMOGLOBIN 15.4 g/dL (13.0-17.5); RED BLOOD COUNT 4.71 x10^6/uL (4.30-5.70); RED CELL DISTRIBUTION WIDTH 14.4 % (11.5-14.5); WHITE BLOOD COUNT 10.3 x10^3/uL (4.0-11.0)
[2021-08-17] MEDS ORDERED: LIDOCAINE 1% Multi-Dose 20 ML VIAL. ONE (07:45)
[2021-08-17] MEDS ORDERED: RIVA10TA PO (07:51)
[2021-08-17 07:57] LABS: CALCIUM 8.9 mg/dL (8.5-10.1); CREATININE 1.3 mg/dL (0.7-1.3); GFR 55.2; POTASSIUM 4.4 mmol/L (3.5-5.1)
[2021-08-17] MEDS ORDERED: MIDAZOLAM HCL/PF 5 MG/5 ML VIAL. ONE (08:06)
[2021-08-17] MEDS ORDERED: HEPARIN for IV BOLUS 10,000 UNIT/10 ML VIAL. ONE (08:06)
[2021-08-17] MEDS ORDERED: fentaNYL PF VIAL 100 MCG/2 ML VIAL ONE (08:06)
[2021-08-17] MEDS ORDERED: diphenhydrAMINE 50 MG/ML VIAL ONE (09:05)
[2021-08-17] MEDS ORDERED: MIDAZOLAM HCL/PF 5 MG/5 ML VIAL. IV ONE (09:30)
[2021-08-17] MEDS: HEPARIN for IV BOLUS 10,000 UNIT/10 ML VIAL. IV ONE ×2 (09:30→11:02)
[2021-08-17] MEDS ORDERED: IODIXANOL 320 MG/ML 100 ML VIAL. IART ONE (09:30)
[2021-08-17] MEDS ORDERED: fentaNYL PF VIAL 100 MCG/2 ML VIAL IV ONE (09:30)
[2021-08-17] MEDS ORDERED: CONTRAST GIVEN. MC PRN (09:30)
[2021-08-17] MEDS ORDERED: diphenhydrAMINE 50 MG/ML VIAL IVP ONE (09:30)
[2021-08-17] MEDS ORDERED: LIDOCAINE 1% Multi-Dose 20 ML VIAL. INJ ONE (09:30)
--- NOTE | 2021-08-17 11:02 | PDOC ---
MODERATE SEDATION ASSESSMENT RISKS/ALTERNATIVES Risks/Alternatives Risks and alternatives of this type of sedation and procedure discussed with: RISK/ALTERNATIVES: Patient H & P ON CHART H & P H & P on chart and reviewed for co-morbid conditions and appropriate labs. H&P ON CHART: Yes STATUS PREG STATUS ASSESSED: N/A MEDS/ALLERGIES REVIEWED Meds/Allergies Reviewed Medications and Allergies including time and route of recently administered narcotics and sedatives. MEDS/ALLERGIES REVIEWED: Yes ASA RATING ASA RATING: II AIRWAY ASSESSMENT Airway Assessment Airway patency, oral function limitations, presence of caps, crowns, dentures, partials, and ability to extend neck assessed. AIRWAY ASSESSMENT: Yes MALLAMPATI SCORE MALLAMPATI SCORE: II PRE-SEDATION ASSESSMENT PRE-SEDATION ASSESSMENT: Yes NIKITA MARQUEZ MD Aug 17, 2021 11:02
[2021-08-17] MEDS ORDERED: ACETAMINOPHEN 325 MG TABLET. PO PRN (11:15)
[2021-08-17] MEDS ORDERED: fentaNYL PF VIAL 100 MCG/2 ML VIAL IVP ONE (11:15)
[2021-08-17] MEDS ORDERED: IV 1/2 NORMAL SALINE 1,000 ML IV SCH (11:15)
--- NOTE | 2021-08-17 11:21 | CARD ---
MR#: [id number] Date of Study: 08/17/2021 Ordering Physician: NIKITA MARQUEZ, Referring Physician: NIKITA MARQUEZ, Tech: Adriane Nayak RT(R) APPROVED REPORT Patient StatusOUT-PATIENT Military Equipment Specialist: Adriane Nayak RT(R) Procedure(s) performed: 1. Aortogram with bilateral lower extremity runoff 2. Complex percutaneous transluminal balloon angioplasty (FINANCIAL SERVICES SALES REPRESENTATIVE) the right superficial femoral artery MODERATE SEDATION TIME: 143 MINUTES FLUORO TIME: 33.3 MIN DOSE: 128 GYCM2 CONTRAST: 116CC VISI INDICATION FOR PROCEDURE The indication(s) include : Peripheral artery disease with claudication. CASE TECHNIQUE After explaining the risks, benefits, and alternative options, informed consent was obtained from the patient. IV conscious sedation was used throughout procedure with appropriate monitoring and was per formed in the presence of a registered nurse who was an independent trained observer other than the mariaelena carlin performing the procedure. During this case, Fluoroscopy and low osmolar contrast were used f or imaging. Specimen(s) Removed: No Estimated Blood loss: 20 cc's. PROCEDURE NARRATIVE After explaining the risk, benefits and alternative options, informed consent was obtained from ida armijo. Patient was brought to the cardiac Recruiter Account Manager and his left groin was prepped and draped in the usu al fashion. 20 cc of 2% lidocaine was infiltrated into the skin and subcutaneous tissues for local a nesthesia. Arterial access was obtained in the left common femoral artery and a 5 Slovenian sheath was inserted. A 5 Slovenian Omni Flush catheter was advanced under fluoroscopy guidance, positioned in the distal descending aorta and aortoiliac angiography was performed. This was then advanced over the ao rtic preston and with the tip positioned in the right external iliac artery, selective right lower ext remity angiography was performed. Contrast injections were performed through the sheath in the left groin for selective left lower extremity angiography. The following findings were noted: FINDINGS 1. No significant stenosis involving the distal descending aorta 2. No significant stenosis involving bilateral common and external iliac arteries 3. No significant stenosis involving bilateral common femoral arteries 4. The right superficial femoral artery showed long chronic total occlusion starting proximal to the previously placed stent in the mid segment, extending throughout the stent, segment between the sten t and the stent in the popliteal artery, within the proximal to mid segment of the stent in the popli teal artery with reconstitution within the mid to distal portion of the stent. There is three-vessel runoff below the knee. 5. The left superficial femoral artery did not show any significant stenosis. Left popliteal artery did not show any significant stenosis. There is good three-vessel runoff below the knee. INTERVENTION The sheath in the left groin was exchanged over a guidewire to a 45 cm 6 Slovenian destination sheath wh ich was then advanced over the aortic preston with the help of the Omni Flush catheter and the tip was positioned in the proximal portion of the right superficial femoral artery. With the help of backup support from a Beltran cross catheter, the long chronic total occlusion extending from the superficial femoral to popliteal artery was crossed with a 0.035 inch Glidewire. Attempts to advance a 5 balloon across the in-stent occlusion in the popliteal artery were unsuccessful. Hence the Glidewire was ch anged over the Beltran cross catheter to a 0.018 inch Glidewire advantage. The long chronic total occlu sions in the superficial femoral and popliteal arteries were then dilated with 5.0 x 100 mm Terumo R2 P Crosstella balloon at high pressure of 16 lata. Following this, the superficial femoral artery was dilated with a 6.0 x 150 mm Terumo R2P Crosstella balloon. Follow-up angiography showed significant recoil especially within the stents despite having expanded with balloon nicely. The lesions were ag ain dilated with the same balloons at high atmospheric pressures but the lesion kept recording despit e adequate dilatation. Further attempts were abandoned with plans for either outpatient referral for laser guided angioplasty versus surgical revascularization. Final angiography showed preserved thre e-vessel runoff below the knee. Patient tolerated the procedure well. Hemostasis in the left groin was achieved using Angio-Seal. There were no immediate complications. Conclusion 1. 100% long chronic total occlusion within the stents and also the segment between the stents in th e right superficial femoral artery and the right popliteal artery. 2. Complex balloon angioplasty to right superficial femoral and popliteal arteries. Recommendations 1. We will discuss with patient regarding the options of outpatient referral for laser guided angiop lasty versus surgical revascularization 2. Vascular risk factor modification including regular exercise regimen and smoking cessation Signed by : Nikita Marquez, Electronically Approved : 08/17/2021 11:21:26
--- NOTE | 2021-08-17 14:04 | NUR ---
Discharge Note: [facility] Discharge instructions and discharge home medications reviewed with Patient and Sister; and a copy given. All questions have been answered and understanding verbalized. The following instructions and handouts were given: Groin site care, moderate sedation, and smoking cessation. Discontinued lines and drains: Left FA IV dc'd, tip intact, and bandage applied. Patient discharged to home with sister via personal vehicle.
== END 2021-08-17 14:07 | disposition home or self-care (01) ==
LOC: CCL 06:41
PROVIDERS: ATTEND Internal Medicine Cardiovascular Disease
DX: I73.9 Peripheral vascular disease, unspecified (principal); I10 Essential (primary) hypertension; E78.00 Pure hypercholesterolemia, unspecified; I25.10 Atherosclerotic heart disease of native coronary artery without angina pectoris; M19.90 Unspecified osteoarthritis, unspecified site; F32.9 Major depressive disorder, single episode, unspecified; F17.210 Nicotine dependence, cigarettes, uncomplicated; Z79.82 Long term (current) use of aspirin; Z79.899 Other long term (current) drug therapy; Z98.890 Other specified postprocedural states; Z72.89 Other problems related to lifestyle; Z88.0 Allergy status to penicillin
CPT/HCPCS: 36415; 37224; 75625; 75716; 80048; 85027; 85610; 99152; 99153; C1725; C1760; C1769; C1887; C1894; J1200; J1644; J2250; J3010; J3490; Q9967; G0269